=== PATIENT | female | born 1935 | race Caucasian/White ===

== ENCOUNTER 2022-06-25 13:30 | Outpatient (RCR) | payer MEDICARE, SELFPAY ==
[2022-06-18 09:06] VITALS: BP 114/62; PULSE 66; RESP 16; TEMP 36.3; BMI 19.0
--- NOTE | 2022-06-18 12:29 | PCM.WC.HP ---
History of Present Illness Date of Service: 06/18/22 History of Wound: This 86-year-old female presents to clinic with bilateral heel ulcerations. Patient notes that she has had these wounds for approximately 1 year. Patient notes that she had a hospitalization at the onset of the wounds. Patient uncertain of why she was hospitalized and when exactly the wound started. But patient does note that she sleeps on her back on a daily basis and will occasionally wake up with heel pain. She is recently started offloading her heels using a pillow and heel float technique. Patient denies any constitutional symptoms at this time does have a history of pacemaker application. Patient denies any constitutional symptoms chest pain calf pain shortness shortness of breath or any other complaints. Patient is ambulatory but unable to wear shoes due to pain. [facility] Home Medications acetaminophen 325 mg tablet 650 mg PO Q4H PRN Pain 06/18/22 [History Last Taken Unknown] albuterol 90 mcg/actuation aerosol inhaler 2 mcg inhalation 06/18/22 [History Last Taken Unknown] albuterol sulfate 90 mcg/actuation aerosol inhaler 2 puff inhalation Q6H PRN Wheezing 06/18/22 [History Last Taken Unknown] allopurinol 100 mg tablet 100 mg PO DAILY 06/18/22 [History Last Taken Unknown] amiodarone 200 mg tablet 200 mg PO DAILY 06/18/22 [History Last Taken Unknown] artificial tears ointment 1 applic EACH EYE QHS 06/18/22 [History Last Taken Unknown] aspirin 81 mg capsule 81 mg PO DAILY 06/18/22 [History Last Taken Unknown] calcium carbonate 500 mg calcium (1,250 mg) chewable tablet 500 mg PO DAILY heartburn 06/18/22 [History Last Taken Unknown] dextromethorphan HBr 30 mg/5 mL oral liquid 60 mg PO Q12H PRN PRN Cough 06/18/22 [History Last Taken Unknown] docusate sodium 100 mg capsule 100 mg PO BID 06/18/22 [History Last Taken Unknown] ferrous sulfate 325 mg (65 mg iron) tablet (FeroSul) 325 mg PO DAILY 06/18/22 [History Last Taken Unknown] gabapentin 100 mg tablet 100 mg PO BID 06/18/22 [History Last Taken Unknown] glipizide 2.5 mg tablet, extended release 24 hr 2.5 mg PO DAILY 06/18/22 [History Last Taken Unknown] lidocaine 4 % topical patch 1 patch topical DAILY 06/18/22 [History Last Taken Unknown] loratadine 10 mg tablet 10 mg PO DAILY 06/18/22 [History Last Taken Unknown] metoprolol tartrate 37.5 mg tablet 37.5 mg PO BID 06/18/22 [History Last Taken Unknown] montelukast 10 mg tablet 10 mg PO QHS 06/18/22 [History Last Taken Unknown] multivitamin 1 tab PO DAILY 06/18/22 [History Last Taken Unknown] nitroglycerin 0.4 mg sublingual tablet 0.4 mg sublingual Q5M PRN Chest Pain 06/18/22 [History Last Taken Unknown] pantoprazole 40 mg tablet,delayed release 40 mg PO DAILY 06/18/22 [History Last Taken Unknown] peg 400-propylene glycol 0.4 %-0.3 % eye gel drops (Systane Gel) 1 drp ophthalmic (eye) TID 06/18/22 [History Last Taken Unknown] potassium chloride 20 mEq tablet,extended release 20 meq PO QHS 06/18/22 [History Last Taken Unknown] potassium chloride 20 mEq tablet,extended release 40 meq PO DAILY 06/18/22 [History Last Taken Unknown] torsemide 20 mg tablet 60 mg PO TID 06/18/22 [History Last Taken Unknown] warfarin 2 mg tablet 2 mg PO DAILY 06/18/22 [History Last Taken Unknown] Allergy/AdvReac Type Severity Reaction Status Date / Time amoxicillin Allergy Other Verified 06/18/22 09:48 atorvastatin [From Lipitor] Allergy Other Verified 06/18/22 09:48 codeine Allergy Other Verified 06/18/22 09:48 cyclosporine [From Restasis] Allergy Other Verified 06/18/22 09:48 diltiazem [From Cardizem] Allergy Other Verified 06/18/22 09:48 ezetimibe [From Zetia] Allergy Other Verified 06/18/22 09:48 metolazone Allergy Other Verified 06/18/22 09:48 morphine Allergy Other Verified 06/18/22 09:48 Social History Smoking Status: Never smoker Vital Signs Vital Signs Vital Signs: 06/18/22 09:06 Temperature 97.3 F L Temperature Source Temporal Pulse Rate 66 Respiratory Rate 16 Blood Pressure 114/62 Blood Pressure Mean 79 Blood Pressure Source Monitor Blood Pressure Position Sitting Blood Pressure Location Left Arm Oxygen Delivery Method Room Air Weight Weight: 50.349 kg Body Mass Index (BMI) 19.0 Physical Exam Narrative Vascular: Dorsalis pedis posterior tibial pulses palpable 2 out of 4 to bilateral lower extremities they were triphasic on by on Doppler examination. Capillary fill time brisk to toes. There appear to be atrophic skin changes though. +1 pitting edema noted to the forefoot Avni malleoli region and lower leg. There are small petechiae distributed to through the dorsal foot and into the anterior leg. Neurologic: Light touch protective sensation intact to bilateral feet. Dermatologic: Full-thickness ulceration to plantar right heel and plantar left heel. Wounds demonstrate a fibronecrotic base and are tender to palpation. No deep probing undermining or signs of infection at this time. No evidence of fluctuance or crepitus noted to the periwound areas. No debridement performed. Musculoskeletal: No wound forming deformity noted. Muscular strength full. No pain with calf squeeze or palpation of popliteal fossa. Const alert and oriented x3 Debridement Note Debridement Note Post-Debridement Measurements and Additional Note: Post-Debridement Measurements/Treatment - Nurse 1 - General Ulcer Assessment Start: 06/18/22 09:05 Freq: Status: Active Protocol: CARLOS.LOWEXFlash Activity Type Activity Date Activity User E-sign Co-sign Detail Recorded Client Recorded Date Recorded By Document 06/18/22 09:06 [facility] [id number] 06/18/22 09:35 [facility] 06/18/22 09:06 - Today's Visit Information Type of service Initial Visit Arrival Mode Ambulatory, Walker Transfer Assistance Other Transfer Assist (Other) stand by Patient Identification Verified (Name & Yes ) Patient Requires Transmission-Based No Precautions Finger Stick Blood Sugar(mg/dl) (if 111 indicated): Blood Sugar Stated by Patient Height and Weight Height 5 ft 4 in Weight 50.349 kg Weight in Pounds 111.0 lbs Body Mass Index (BMI) 19.0 BMI Classification Normal BSA - Primo 1.52 Vital Signs Temperature (97.8 F-99.1 F) 97.3 F L Temperature Source Temporal Pulse Rate (60-100) 66 Pulse Location Monitor Respiratory Rate (12-18) 16 Respiratory rate source Observation Oxygen Delivery Method Room Air Blood Pressure (90/60-120/80) 114/62 Blood Pressure Mean (mm Hg) 79 Source Monitor Position Sitting Blood Pressure Location Left Arm History Since Last Visit- (Skip if this is Patient's initial visit) Left Footwear Other Footwear (Comment) Right Footwear Other Footwear (Comment) Other Footwear non skid socks Pain Scale: 0-10 Numeric Is Patient Pain Free? No BOTH HEELS -Description Sharp,Burning -Intensity 8 -Duration (hours) Acute -Pain Behavior Withdrawal from Touch,Facial Grimacing -Pain Aggravating Factors Standing, Sitting,Walking -Alleviating Factors/Interventions Turning/ Repositioning, Distraction, Will continue to monitor, Patient denies need for intervention, Emotional Support -Comments USES PRN TYLENOL AT ASSISTED LIVING Lower Extremity Assessment/ Foot Assessment/ Toe Nail Assessment Right -Posterior Tibial Palpable No -Posterior Tibial Doppler Monophasic -Dorsalis Pedis Palpable Yes -Dorsalis Pedis Doppler Monophasic -Extremity Color Pale -Hair Growth on Legs No -Hair Growth on Toes No -Temperature of Extremity Cool -Other Deformity No -Prior Foot Ulcer No -Charcot Joint No -Prior Amputation No -Thick Yes -Discolored Yes -Deformed No -Improper Length & Hygeine Yes Left -Posterior Tibial Palpable No -Posterior Tibial Doppler Monophasic -Dorsalis Pedis Palpable Yes -Dorsalis Pedis Doppler Monophasic -Extremity Color Pale -Hair Growth on Legs Yes -Hair Growth on Toes No -Temperature of Extremity Cool -Capillary Refill Less than 3 Seconds -Other Deformity No -Prior Foot Ulcer No -Charcot Joint No -Prior Amputation No -Thick Yes -Discolored Yes -Deformed No -Improper Length & Hygeine Yes Neuropathy Assessment Feet - Top Side and Bottom <Entered> (a) Communication Assessment Preferred language Nigerian Client Integration Manager Required No Able to Read Yes Able to Write Yes Communication Tools None Right Hearing Abillity Normal Left Hearing Abillity Normal Visual Assistive Devices Glasses Teaching Assessment Preferences Verbal,Written, Audio/Visual, Demonstration Barriers to Learning None Readiness To Learn Excellent Willingness to Engage in Self Management High Activies Readiness to Engage in Self Management High Activities Anxiety Level Calm Cooperation Cooperative Perception Coherent Interest in Health Problem Asks Questions Education Importance Acknowledges Need Does Patient Smoke tobacco or other No substances Smoking Status Never smoker Is Patient Diabetic Yes Functional Assessment Recent Decline in Ability to Perform Ambulation, Transferring Culture/Shinto/Resort Manager Cultural/Shinto Needs that may affect No Treatment Plan Teaching: Wound Center *Welcome to the Wound Center -Person Taught Patient -Teaching Method Discussion -Response to teaching Verbalize understanding Welcome to the Wound Care Center Nigerian (a) 1 - + WC - Nurse 1 - General Ulcer Measurement Start: 06/18/22 09:05 Freq: Status: Active Protocol: Activity Type Activity Date Activity User E-sign Co-sign Detail Recorded Client Recorded Date Recorded By Document 06/18/22 09:06 [facility] [id number] 06/18/22 09:35 [facility] 06/18/22 09:06 Wound Center Nurse 1 #2- L HEEL -Combined with other wound No -Current Size (cm) - Length 0.7 -Current Size (cm) - Width 0.7 -Current Size (cm) - Depth 0.2 -Total Square Cm 0.49 -Date of Last Picture (Recall this 06/18/22 field) -Photo Taken Yes -Epithelialization None Present -Tunneling No -Undermining/Tunneling No -Circular Undermining No -Exudate Amt Small -Exudate Type Serous -Wound Margin Distinct, Outline Attached -Granulation Amt None Present (0 %) -Slough/Fibrin Yes -Necrosis Amt Large (67-100%) -Necrotic Tissue Type Adherent Slough -Texture (Shannon-wound Skin Appearance) Assessed, Scarring -Moisture (Shannon-wound Skin Appearance) Assessed -Color (Shannon-wound Skin Appearance) Assessed, Erythema -Temperature (Shannon-wound Skin No Abnormality Appearance) (Pt Warm) -Tenderness on Palpation (Shannon-wound Yes Skin Appearance) -Ulcer Cleansing Soap and Water -Foul Odor after Cleansing No -Anesthetic Used 5% Lidocaine Gel #1- R HEEL CLUSTER -Combined with other wound No -Current Size (cm) - Length 1.1 -Current Size (cm) - Width 0.4 -Current Size (cm) - Depth 0.3 -Total Square Cm 0.44 -Date of Last Picture (Recall this 06/18/22 field) -Photo Taken Yes -Epithelialization None Present -Tunneling No -Undermining/Tunneling No -Circular Undermining No -Exudate Amt Small -Exudate Type Serous -Wound Margin Distinct, Outline Attached -Granulation Amt None Present (0 %) -Slough/Fibrin Yes -Necrosis Amt Large (67-100%) -Necrotic Tissue Type Adherent Slough -Texture (Shannon-wound Skin Appearance) Assessed, Scarring -Moisture (Shannon-wound Skin Appearance) Assessed -Color (Shannon-wound Skin Appearance) Assessed, Erythema -Temperature (Shannon-wound Skin No Abnormality Appearance) (Pt Warm) -Tenderness on Palpation (Shannon-wound Yes Skin Appearance) -Ulcer Cleansing Soap and Water -Foul Odor after Cleansing No -Anesthetic Used 5% Lidocaine Gel Lower Limb Edema Present Yes Right Calf (cm) 34.1 Right Ankle (cm) 20.5 Left Calf (cm) 34.5 Left Ankle (cm) 20 WC - Nurse 2 - General Ulcer CM Notes Start: 06/18/22 09:05 Freq: Status: Active Protocol: Activity Type Activity Date Activity User E-sign Co-sign Detail Recorded Client Recorded Date Recorded By Document 06/18/22 10:04 [id number] 06/18/22 10:15 CJ 06/18/22 10:04 Wound Center Nurse 2 #2- L HEEL -Correct Patient No -Correct Side, Site, Position No -Correct Procedure No -Procedure Performed No -Wound/Ulcer Outcome Not Healed #1- R HEEL CLUSTER -Correct Patient No -Correct Side, Site, Position No -Correct Procedure No -Procedure Performed No -Wound/Ulcer Outcome Not Healed Pain Scale: 0-10 Numeric Is Patient Pain Free? Yes - Nurse 3 - General Ulcer D/C NN Start: 06/18/22 09:05 Freq: Status: Active Protocol: Activity Type Activity Date Activity User E-sign Co-sign Detail Recorded Client Recorded Date Recorded By Document 06/18/22 10:36 DANY [id number] 06/18/22 10:37 DANY 06/18/22 10:36 Wound Care Nurse 3 Left -Multi-Layered Wrap Application Unna Boot - Bilateral ($) -Unna Boots (Bilat) ($) 2 Pain Scale: 0-10 Numeric Is Patient Pain Free? Yes WC - Visit Discharge Discharge Condition Stable Ambulatory Status Walker Transportation brethren care Assessment/Plan Assessment/Plan (1) Non-pressure chronic ulcer of other part of right foot with fat layer exposed: CODE(S): L97.512 - Non-pressure chronic ulcer of other part of right foot with fat layer exposed PLAN: Patient examined evaluated, all findings bita with patient in detail. Wounds appear stable at this time. Uncertain if they are secondary to pressure injury or possible underlying vasculitides. I have recommended offloading heels with Prevalon boots. Educated patient can purchase these off [employer] or a local medical equipment store. If patient is unable to receive these she will continue offloading her heels by floating them with a pillow as she sleeps on her back and can create excess pressure the posterior heel contributing to wound formation. Upon examination her vascular status appears to be intact, we have ordered arterial studies to rule out any macro or microvascular disease. I have ordered additional lab work to rule out any subtle underlying infection or inflammatory process such as autoimmune disease that may contribute to wound formation. Due to edema we have wrapped bilateral legs with Unna boot compressive dressings. I discussed with patient in detail that she should elevate her legs best doing this when laying supine position. Patient may remain ambulatory with an open back shoe to prevent irritation to the wound sites. Patient will follow up on a weekly basis as we will consider more work-up or advanced wound care products. (2) Non-pressure chronic ulcer of other part of left foot with fat layer exposed: CODE(S): L97.522 - Non-pressure chronic ulcer of other part of left foot with fat layer exposed
[2022-06-25 13:31] VITALS: BP 122/66; PULSE 98; RESP 20; TEMP 36.3; BMI 19.0
--- NOTE | 2022-06-25 15:39 | PN.PCM_ITS ---
History of Present Illness Date of Service: 06/25/22 Chief Complaint: Bilateral heel ulcers History of Wound: This 86-year-old female presents to clinic with bilateral heel ulcerations. Patient notes that she has had these wounds for approximately 1 year. Patient notes that she had a hospitalization at the onset of the wounds. Patient uncertain of why she was hospitalized and when exactly the wound started. But patient does note that she sleeps on her back on a daily basis and will occasionally wake up with heel pain. She is recently started offloading her heels using a pillow and heel float technique. Patient denies any constitutional symptoms at this time does have a history of pacemaker application. Patient denies any constitutional symptoms chest pain calf pain shortness shortness of breath or any other complaints. Patient is ambulatory but unable to wear shoes due to pain. Progress of Wound: Courtesy visit for Dr. Quiñonez. Right heel is healed today. Left heal has firm, tender callus with a black spot in the center. Edema is improved. She continues to have petechia on her toes. Objective Data Objective Data Vital Signs: Vital Signs Temp Pulse Resp BP O2 Del Method 97.3 F L 98 20 H 122/66 H Room Air 06/25/22 13:31 06/25/22 13:31 06/25/22 13:31 06/25/22 13:31 06/18/22 09:06 Oxygen Delivery Method Room Air Weight: 111 lb Body Mass Index (BMI) 19.0 Charges/Coding Visit Charges Office Visits / Consults: 63031 OV L3 Est Physical Exam Const alert and oriented x3 General Appearance: cooperative HEENT normocephalic Resp normal respiratory effort Effort and Inspection: able to speak in complete sentences Cardio regular rate GI non-tender Palpation: soft Extremity normal capillary refill Skin Skin Narrative: There are small petechiae distributed to through the dorsal foot and into the anterior leg.? Wound Narrative: Right heel is healed but remains tender to palpation. Left heal has a callus with a black spot in the center, that is firm, extremely painful to palpation. Neuro oriented x3 Sensorium / Orientation: alert Psych affect normal Debridement Note Debridement Note No debridement was completed: No debridement was completed today Post-Debridement Measurements and Additional Note: Post-Debridement Measurements/Treatment CARLOS - Nurse 1 - General Ulcer Assessment Start: 06/18/22 09:05 Freq: Status: Active Protocol: WC.LOWEXT Activity Type Activity Date Activity User E-sign Co-sign Detail Recorded Client Recorded Date Recorded By Document 06/18/22 09:06 [facility] [id number] 06/18/22 09:35 [facility] Document 06/25/22 13:31 DL [id number] 06/25/22 13:42 DL 06/18/22 06/25/22 09:06 13:31 WC - Today's Visit Information Type of service Initial Visit Follow-up Visit (Physician/REED OR WIND INSTRUMENT REPAIRER ) Arrival Mode Ambulatory, Wheelchair Walker Transfer Assistance Other Manual Transfer Assist (Other) stand by x1 Patient Identification Verified (Name & Yes Yes ) Patient Requires Transmission-Based No Precautions Safety Precautions Fall Prevention Finger Stick Blood Sugar(mg/dl) (if 111 pt unsure indicated): Blood Sugar Stated by Stated by Patient Patient Height and Weight Height 5 ft 4 in Weight 111 lb Weight in Pounds 111.0 lbs Body Mass Index (BMI) 19.0 19.0 BMI Classification Normal Normal BSA - Primo 1.52 Vital Signs Temperature (97.8 F-99.1 F) 97.3 F L 97.3 F L Temperature Source Temporal Temporal Pulse Rate (60-100) 66 98 Pulse Location Monitor Monitor Respiratory Rate (12-18) 16 20 H Respiratory rate source Observation Observation Oxygen Delivery Method Room Air Blood Pressure (90/60-120/80) 114/62 122/66 H Blood Pressure Mean (mm Hg) 79 84 Source Monitor Monitor Position Sitting Blood Pressure Location Left Arm History Since Last Visit- (Skip if this is Patient's initial visit) Have you changed medications since your No last visit? Any new allergies or adverse reactions No Had a fall/change in ADL's that may No increase risk of falls Signs or symptoms of abuse and/or No neglect since last visit Have you been in the hospital since your No last visit? Has dressing in place as prescribed Yes Has compression in place as prescribed Yes Has offloadiing in place as prescribed N/A Experienced any changes in pain level or Yes management Left Footwear Other Footwear (Comment) Right Footwear Other Footwear (Comment) Other Footwear non skid socks Pain Scale: 0-10 Numeric Is Patient Pain Free? No Yes BOTH HEELS -Description Sharp,Burning -Intensity 8 -Duration (hours) Acute -Pain Behavior Withdrawal from Touch,Facial Grimacing -Pain Aggravating Factors Standing, Sitting,Walking -Alleviating Factors/Interventions Turning/ Repositioning, Distraction, Will continue to monitor, Patient denies need for intervention, Emotional Support -Comments USES PRN TYLENOL AT ASSISTED LIVING Lower Extremity Assessment/ Foot Assessment/ Toe Nail Assessment Right -Posterior Tibial Palpable No -Posterior Tibial Doppler Monophasic -Dorsalis Pedis Palpable Yes -Dorsalis Pedis Doppler Monophasic -Extremity Color Pale -Hair Growth on Legs No -Hair Growth on Toes No -Temperature of Extremity Cool -Other Deformity No -Prior Foot Ulcer No -Charcot Joint No -Prior Amputation No -Thick Yes -Discolored Yes -Deformed No -Improper Length & Hygeine Yes Left -Posterior Tibial Palpable No -Posterior Tibial Doppler Monophasic -Dorsalis Pedis Palpable Yes -Dorsalis Pedis Doppler Monophasic -Extremity Color Pale -Hair Growth on Legs Yes -Hair Growth on Toes No -Temperature of Extremity Cool -Capillary Refill Less than 3 Seconds -Other Deformity No -Prior Foot Ulcer No -Charcot Joint No -Prior Amputation No -Thick Yes -Discolored Yes -Deformed No -Improper Length & Hygeine Yes Neuropathy Assessment Feet - Top Side and Bottom <Entered> (a) Communication Assessment Preferred language Irish Patient Relations Manager Required No Able to Read Yes Able to Write Yes Communication Tools None Right Hearing Abillity Normal Left Hearing Abillity Normal Visual Assistive Devices Glasses Teaching Assessment Preferences Verbal,Written, Audio/Visual, Demonstration Barriers to Learning None Readiness To Learn Excellent Willingness to Engage in Self Management High Activies Readiness to Engage in Self Management High Activities Anxiety Level Calm Cooperation Cooperative Perception Coherent Interest in Health Problem Asks Questions Education Importance Acknowledges Need Does Patient Smoke tobacco or other No substances Smoking Status Never smoker Is Patient Diabetic Yes Functional Assessment Recent Decline in Ability to Perform Ambulation, Transferring 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 Cultural/Sikhism Needs that may affect No Treatment Plan Teaching: Wound Center *Welcome to the Wound Center -Person Taught Patient -Teaching Method Discussion -Response to teaching Verbalize understanding Welcome to the Wound Care Center Irish (a) 1 - + WC - Nurse 1 - General Ulcer Measurement Start: 06/18/22 09:05 Freq: Status: Active Protocol: Activity Type Activity Date Activity User E-sign Co-sign Detail Recorded Client Recorded Date Recorded By Document 06/18/22 09:06 [facility] [id number] 06/18/22 09:35 [facility] Document 06/25/22 13:31 DL [id number] 06/25/22 13:42 DL 06/18/22 06/25/22 09:06 13:31 Wound Center Nurse 1 #1- R HEEL CLUSTER -Combined with other wound No -Current Size (cm) - Length 1.1 0.1 -Current Size (cm) - Width 0.4 0.1 -Current Size (cm) - Depth 0.3 0.1 -Total Square Cm 0.44 0.01 -Date of Last Picture (Recall this 06/18/22 field) -Photo Taken Yes No -Epithelialization None Present -Tunneling No -Undermining/Tunneling No -Circular Undermining No -Exudate Amt Small None Present -Exudate Type Serous -Wound Margin Distinct, Flat & Intact Outline Attached -Granulation Amt None Present (0 Large (67-100%) %) -Granulation Quality [place] -Slough/Fibrin Yes -Necrosis Amt Large (67-100%) None Present (0 %) -Necrotic Tissue Type Adherent Slough -Structure Exposed N/A -Texture (Shannon-wound Skin Appearance) Assessed, No Abnormality Scarring -Moisture (Shannon-wound Skin Appearance) Assessed No Abnormality -Color (Shannon-wound Skin Appearance) Assessed, Erythema -Temperature (Shannon-wound Skin No Abnormality No Abnormality Appearance) (Pt Warm) (Pt Warm) -Tenderness on Palpation (Shannon-wound Yes Yes Skin Appearance) -Ulcer Cleansing Soap and Water Soap and Water -Foul Odor after Cleansing No No -Anesthetic Used 5% Lidocaine 4% Lidocaine Gel Solution,5% Lidocaine Gel #2- L HEEL -Combined with other wound No -Current Size (cm) - Length 0.7 0.6 -Current Size (cm) - Width 0.7 0.8 -Current Size (cm) - Depth 0.2 0.2 -Total Square Cm 0.49 0.48 -Date of Last Picture (Recall this 06/18/22 field) -Photo Taken Yes No -Epithelialization None Present -Tunneling No -Undermining/Tunneling No -Circular Undermining No -Exudate Amt Small Small -Exudate Type Serous Serosanguineous -Wound Margin Distinct, Well Defined, Outline Not Attached Attached -Granulation Amt None Present (0 %) -Slough/Fibrin Yes -Necrosis Amt Large (67-100%) Large (67-100%) -Necrotic Tissue Type Adherent Slough Adherent Slough -Structure Exposed N/A -Texture (Shannon-wound Skin Appearance) Assessed, Scarring Scarring -Moisture (Shannon-wound Skin Appearance) Assessed No Abnormality -Color (Shannon-wound Skin Appearance) Assessed, No Abnormality Erythema -Temperature (Shannon-wound Skin No Abnormality No Abnormality Appearance) (Pt Warm) (Pt Warm) -Tenderness on Palpation (Shannon-wound Yes Yes Skin Appearance) -Ulcer Cleansing Soap and Water Soap and Water -Foul Odor after Cleansing No No -Anesthetic Used 5% Lidocaine 4% Lidocaine Gel Solution,5% Lidocaine Gel Lower Limb Edema Present Yes Right Calf (cm) 34.1 31 Right Ankle (cm) 20.5 19.5 Left Calf (cm) 34.5 31.5 Left Ankle (cm) 20 19 CARLOS - Nurse 2 - General Ulcer CM Notes Start: 06/18/22 09:05 Freq: Status: Active Protocol: Activity Type Activity Date Activity User E-sign Co-sign Detail Recorded Client Recorded Date Recorded By Document 06/18/22 10:04 [id number] 06/18/22 10:15 Document 06/25/22 14:12 [id number] 06/25/22 14:16 06/18/22 06/25/22 10:04 14:12 Wound Center Nurse 2 #1- R HEEL CLUSTER -Correct Patient No No -Correct Side, Site, Position No No -Correct Procedure No No -Procedure Performed No No -Post Debridement (cm) - Length 0 -Post Debridement (cm) - Width 0 -Post Debridement (cm) - Depth 0 -Total Square (Post) (cm) 0 -Area of Debridement (cm) - Length 0 -Area of Debridement (cm) - Width 0 -Total Square (Area) (cm) 0 -Wound/Ulcer Outcome Not Healed Healed- Epithelialized #2- L HEEL -Correct Patient No No -Correct Side, Site, Position No No -Correct Procedure No No -Procedure Performed No No -Wound/Ulcer Outcome Not Healed Not Healed -Debridement - Subq, 1st 20sq cm No Pain Scale: 0-10 Numeric Is Patient Pain Free? Yes Yes - Nurse 3 - General Ulcer D/C NN Start: 06/18/22 09:05 Freq: Status: Active Protocol: Activity Type Activity Date Activity User E-sign Co-sign Detail Recorded Client Recorded Date Recorded By Document 06/18/22 10:36 KR [id number] 06/18/22 10:37 KR Document 06/25/22 14:21 DL [id number] 06/25/22 14:55 DL 06/18/22 06/25/22 10:36 14:21 Wound Care Nurse 3 #2- L HEEL -Ulcer Cleansing Rinsed/ Irrigated with Saline -Foul Odor after Cleansing No Left -Multi-Layered Wrap Application Unna Boot - Unna Boot - Bilateral ($) Bilateral ($) -Unna Boots (Bilat) ($) 2 2 Treatment Response Procedure Tolerated Well Pain Scale: 0-10 Numeric Is Patient Pain Free? Yes Yes WC - Visit Discharge Discharge Condition Stable Stable Ambulatory Status Walker Wheelchair Transportation [facility] Facility Type [employer] And Pattern [employer]er Care Facility Orders Sent Yes Assessment/Plan Assessment/Plan (1) Non-pressure chronic ulcer of other part of right foot with fat layer exposed: CODE(S): L97.512 - Non-pressure chronic ulcer of other part of right foot with fat layer exposed PLAN: Courtesy visit for Dr. Quiñonez. Right heel is healed. Left heel is stable. Will continue with Unna boots bilaterally. She will continue to off load her heels bilaterally. She states she has been using a pillow to keep her heels off of her bed. Waiting for vascular studies. I discussed with patient in detail that she should elevate her legs best doing this when laying supine position. Patient may remain ambulatory with an open back shoe to prevent irritation to the wound sites. Labs reviewed with patient. Her chemistry panel has K+ 3.4, Chloride 96, BUN 39, creatinine 1.16. Sed rate 70, the remainder of the labs were unremarkable. Dr. Quiñonez can review all the labs in detail with her when he returns. Encouraged patient to increase potassium intake and eat green, leafy vegetables. Patient will follow up on a weekly basis. (2) Non-pressure chronic ulcer of other part of left foot with fat layer exposed: CODE(S): L97.522 - Non-pressure chronic ulcer of other part of left foot with fat layer exposed
== END 2022-06-26 23:59 | disposition home or self-care (01) ==
LOC: WC 13:30
PROVIDERS: PCP Internal Medicine; Referring Provider Internal Medicine; Visit Provider Podiatrist
DX: L97.512 Non-pressure chronic ulcer of other part of right foot with fat layer exposed (principal); L97.522 Non-pressure chronic ulcer of other part of left foot with fat layer exposed; R60.0 Localized edema; G62.9 Polyneuropathy, unspecified
CPT/HCPCS: 29580; 99203; 99213; G0463

== ENCOUNTER 2022-07-23 08:45 | Outpatient (RCR) | payer MEDICARE, SELFPAY ==
[2022-06-27 00:10] VITALS: BP 122/66; PULSE 98; RESP 20; TEMP 36.3; BMI 19.0
[2022-07-02 13:35] VITALS: BP 133/57; PULSE 61; RESP 18; TEMP 36.4; BMI 19.0
--- NOTE | 2022-07-02 14:04 | PCM.WC.PN ---
History of Present Illness Date of Service: 07/02/22 Chief Complaint: Bilateral heel ulcers History of Wound: This 86-year-old female presents to clinic with bilateral heel ulcerations. Patient notes that she has had these wounds for approximately 1 year. Patient notes that she had a hospitalization at the onset of the wounds. Patient uncertain of why she was hospitalized and when exactly the wound started. But patient does note that she sleeps on her back on a daily basis and will occasionally wake up with heel pain. She is recently started offloading her heels using a pillow and heel float technique. Patient denies any constitutional symptoms at this time does have a history of pacemaker application. Patient denies any constitutional symptoms chest pain calf pain shortness shortness of breath or any other complaints. Patient is ambulatory but unable to wear shoes due to pain. Progress of Wound: Courtesy visit for Dr. Quiñonez.? Right heel remains healed, but continues to be very painful to light palpation with sharp, electrical pains with walking.? Left heal no longer has thick callus, it has softened. It is also very painful to palpation. Edema is improved with the Unna boots. She continues to have petechia on her right toes. Objective Data Objective Data Vital Signs: Vital Signs Temp Pulse Resp BP 97.6 F L 61 18 133/57 H 07/02/22 13:35 07/02/22 13:35 07/02/22 13:35 07/02/22 13:35 Weight: 111 lb Body Mass Index (BMI) 19.0 Charges/Coding Procedures Integumentary 111xxx-113xx: [id number] Jolly subq tissue 20 sq cm/< Physical Exam Const alert and oriented x3 General Appearance: cooperative HEENT normocephalic Resp normal respiratory effort Effort and Inspection: able to speak in complete sentences Cardio regular rate GI non-tender Palpation: soft Extremity normal capillary refill Skin Skin Narrative: There are small petechiae distributed on right dorsal toes. Wound Narrative: Right heel remains healed but continues to be tender to palpation. Left heal has a callus has softened and able to be removed. It continues to be extremely painful to palpation. Neuro oriented x3 Sensorium / Orientation: alert Psych affect normal Debridement Note Debridement Note Wound debrided: posterior heel ulcer Laterality: Left Type of Debridement: Excisional debridement Anesthesia Used: 5% Lidocaine Gel Depth: Down to and including healthy tissue and in the subcutaneous layer Percentage of wound debrided: 100 Instrument Used: 3mm curette Tissue Removed: Devitalized tissue and slough Severity: Fat Layer Exposed Bleeding Controlled with: Pressure Patient tolerated procedure: Patient did not tolerate procedure well Debridement Free Text: Patient has a lot of discomfort with palpation and with light debridement. Post-Debridement Measurements and Additional Note: Post-Debridement Measurements/Treatment CARLOS - Nurse 1 - General Ulcer Assessment Start: 07/02/22 13:35 Freq: Status: Active Protocol: LENNOX Activity Type Activity Date Activity User E-sign Co-sign Detail Recorded Client Recorded Date Recorded By Document 07/02/22 13:35 TEN [id number] 07/02/22 13:39 TEN 07/02/22 13:35 WC - Today's Visit Information Type of service Follow-up Visit (Physician/RESTAURANT FLOOR MANAGER ) Arrival Mode Wheelchair Transfer Assistance Manual Transfer Assist (Other) x2 Patient Identification Verified (Name & Yes ) Patient Requires Transmission-Based No Precautions Height and Weight Body Mass Index (BMI) 19.0 BMI Classification Normal Vital Signs Temperature (97.8 F-99.1 F) 97.6 F L Temperature Source Temporal Pulse Rate (60-100) 61 Pulse Location Monitor Respiratory Rate (12-18) 18 Respiratory rate source Observation Blood Pressure (90/60-120/80) 133/57 H Blood Pressure Mean (mm Hg) 82 Source Monitor History Since Last Visit- (Skip if this is Patient's initial visit) Have you changed medications since your No last visit? Any new allergies or adverse reactions No Had a fall/change in ADL's that may No increase risk of falls Signs or symptoms of abuse and/or No neglect since last visit Have you been in the hospital since your No last visit? Has dressing in place as prescribed Yes Has compression in place as prescribed Yes Has offloadiing in place as prescribed Yes Experienced any changes in pain level or No management Left Footwear Slipper Right Footwear Slipper Pain Scale: 0-10 Numeric Is Patient Pain Free? Yes CARLOS Amaya Nurse 1 - General Ulcer Measurement Start: 07/02/22 13:35 Freq: Status: Active Protocol: Activity Type Activity Date Activity User E-sign Co-sign Detail Recorded Client Recorded Date Recorded By Document 07/02/22 13:35 TEN [id number] 07/02/22 13:39 AK 07/02/22 13:35 Wound Center Nurse 1 #2- L HEEL -Current Size (cm) - Length 0.4 -Current Size (cm) - Width 0.6 -Current Size (cm) - Depth 0.2 -Total Square Cm 0.24 -Photo Taken No -Exudate Amt Small -Exudate Type Serosanguineous -Wound Margin Distinct, Outline Attached -Granulation Amt None Present (0 %) -Necrosis Amt Medium (34-66%) -Necrotic Tissue Type Adherent Slough -Structure Exposed N/A -Texture (Shannon-wound Skin Appearance) Scarring -Moisture (Shannon-wound Skin Appearance) No Abnormality -Color (Shannon-wound Skin Appearance) No Abnormality -Temperature (Shannon-wound Skin No Abnormality Appearance) (Pt Warm) -Tenderness on Palpation (Shannon-wound No Skin Appearance) -Ulcer Cleansing Soap and Water -Foul Odor after Cleansing No -Anesthetic Used 5% Lidocaine Gel Right Calf (cm) 28.5 Right Ankle (cm) 20.5 Left Calf (cm) 29.7 Left Ankle (cm) 19.2 WC - Nurse 2 - General Ulcer CM Notes Start: 07/02/22 13:35 Freq: Status: Active Protocol: Activity Type Activity Date Activity User E-sign Co-sign Detail Recorded Client Recorded Date Recorded By Document 07/02/22 13:53 MW [id number] 07/02/22 13:57 MW 07/02/22 13:53 Wound Center Nurse 2 #2- L HEEL -Time 13:54 -Correct Patient Yes -Correct Side, Site, Position Yes -Correct Procedure Yes -Procedure Performed Yes -Type of Procedure Debridement -Clinical Debridement Subcutaneous -Tissue Removed Subcutaneous -Post Debridement (cm) - Length 0.7 -Post Debridement (cm) - Width 0.7 -Post Debridement (cm) - Depth 0.2 -Total Square (Post) (cm) 0.49 -Area of Debridement (cm) - Length 0.7 -Area of Debridement (cm) - Width 0.7 -Total Square (Area) (cm) 0.49 -Tunneling No -Undermining/Tunneling No -Circular Undermining No -Wound/Ulcer Outcome Not Healed -Ulcer Cleansing Rinsed/ Irrigated with Saline -Foul Odor after Cleansing No -Bioengineered Tissue No -Bleeding Controlled with Pressure -Treatment Response Procedure Tolerated Well -Offloading No -Debridement - Subq, 1st 20sq cm Yes Pain Scale: 0-10 Numeric Is Patient Pain Free? Yes Assessment/Plan Assessment/Plan (1) Non-pressure chronic ulcer of other part of right foot with fat layer exposed: CODE(S): L97.512 - Non-pressure chronic ulcer of other part of right foot with fat layer exposed PLAN: Courtesy visit for Dr. Quiñonez. Right heel remains healed. Left heel has improved. Will continue with Unna boots bilaterally. She will continue to off load her heels bilaterally. She states she has been using a pillow to keep her heels off of her bed. She is complaining of sharp, hot, shooting pains in bilateral heels when walking. Waiting for vascular studies. I discussed with patient in detail that she should elevate her legs best doing this when laying supine position. Patient may remain ambulatory with an open back shoe to prevent irritation to the wound sites. Labs reviewed with patient. Her chemistry panel has K+ 3.4, Chloride 96, BUN 39, creatinine 1.16. Sed rate 70, the remainder of the labs were unremarkable. Dr. Quiñonez can review all the labs in detail with her when he returns. Encouraged patient to increase potassium intake and eat green, leafy vegetables. Patient will follow up on a weekly basis. (2) Non-pressure chronic ulcer of other part of left foot with fat layer exposed: CODE(S): L97.522 - Non-pressure chronic ulcer of other part of left foot with fat layer exposed
[2022-07-09 08:43] VITALS: BP 90/60; PULSE 66; TEMP 36.2; BMI 19.0
--- NOTE | 2022-07-09 10:08 | PN.PCM_ITS ---
History of Present Illness Date of Service: 07/09/22 Chief Complaint: Bilateral heel ulcers History of Wound: This 86-year-old female presents to clinic with bilateral heel ulcerations. Patient notes that she has had these wounds for approximately 1 year. Patient notes that she had a hospitalization at the onset of the wounds. Patient uncertain of why she was hospitalized and when exactly the wound started. But patient does note that she sleeps on her back on a daily basis and will occasionally wake up with heel pain. She is recently started offloading her heels using a pillow and heel float technique. Patient denies any constitutional symptoms at this time does have a history of pacemaker application. Patient denies any constitutional symptoms chest pain calf pain shortness shortness of breath or any other complaints. Patient is ambulatory but unable to wear shoes due to pain. Progress of Wound: Courtesy visit for Dr. Quiñonez.? Right heel remains healed, but continues to be very painful to light palpation with sharp, electrical pains with walking.? Left heal no longer has thick callus, it has softened. It is also very painful to palpation. Edema is improved with the Unna boots. She continues to have petechia on her right toes. Objective Data Objective Data Vital Signs: Vital Signs Temp Pulse Resp BP 97.2 F L 66 18 90/60 07/09/22 08:43 07/09/22 08:43 07/02/22 13:35 07/09/22 08:43 Weight: 50.349 kg Body Mass Index (BMI) 19.0 Physical Exam Narrative Vascular: Dorsalis pedis posterior tibial pulses palpable 2 out of 4 to bilateral lower extremities they were triphasic on by on Doppler examination. Capillary fill time brisk to toes. There appear to be atrophic skin changes though. +1 pitting edema noted to the forefoot Avni malleoli region and lower leg. There are small petechiae distributed to through the dorsal foot and into the anterior leg. Neurologic: Light touch protective sensation intact to bilateral feet. Dermatologic: Full-thickness ulceration to plantar right heel and plantar left heel. Wounds demonstrate a fibronecrotic base and are tender to palpation. No deep probing undermining or signs of infection at this time. No evidence of fluctuance or crepitus noted to the periwound areas. No debridement performed. Musculoskeletal: No wound forming deformity noted. Muscular strength full. No pain with calf squeeze or palpation of popliteal fossa. Const alert and oriented x3 Debridement Note Debridement Note Post-Debridement Measurements and Additional Note: Post-Debridement Measurements/Treatment CARLOS - Nurse 1 - General Ulcer Assessment Start: 07/02/22 13:35 Freq: Status: Active Protocol: LOWEXT Activity Type Activity Date Activity User E-sign Co-sign Detail Recorded Client Recorded Date Recorded By Document 07/02/22 13:35 AK [id number] 07/02/22 13:39 AK Document 07/09/22 08:43 ML [id number] 07/09/22 08:52 ML 07/02/22 07/09/22 13:35 08:43 WC - Today's Visit Information Type of service Follow-up Visit Follow-up Visit (Physician/CURRENCY MACHINE OPERATOR (Physician/CURRENCY MACHINE OPERATOR ) ) Arrival Mode Wheelchair Wheelchair Transfer Assistance Manual None Transfer Assist (Other) x2 Patient Identification Verified (Name & Yes Yes ) Patient Requires Transmission-Based No No Precautions Safety Precautions NA Height and Weight Body Mass Index (BMI) 19.0 19.0 BMI Classification Normal Normal Vital Signs Temperature (97.8 F-99.1 F) 97.6 F L 97.2 F L Temperature Source Temporal Temporal Pulse Rate (60-100) 61 66 Pulse Location Monitor Monitor Respiratory Rate (12-18) 18 Respiratory rate source Observation Blood Pressure (90/60-120/80) 133/57 H 90/60 Blood Pressure Mean (mm Hg) 82 70 Source Monitor Monitor Position Sitting Blood Pressure Location Left Arm History Since Last Visit- (Skip if this is Patient's initial visit) Have you changed medications since your No No last visit? Any new allergies or adverse reactions No No Had a fall/change in ADL's that may No No increase risk of falls Signs or symptoms of abuse and/or No No neglect since last visit Have you been in the hospital since your No No last visit? Has dressing in place as prescribed Yes Yes Has compression in place as prescribed Yes N/A Has offloadiing in place as prescribed Yes Experienced any changes in pain level or No No management Left Footwear Slipper Slipper Right Footwear Slipper Slipper Pain Scale: 0-10 Numeric Is Patient Pain Free? Yes Yes CARLOS - Nurse 1 - General Ulcer Measurement Start: 07/02/22 13:35 Freq: Status: Active Protocol: Activity Type Activity Date Activity User E-sign Co-sign Detail Recorded Client Recorded Date Recorded By Document 07/02/22 13:35 AK [id number] 07/02/22 13:39 AK Document 07/09/22 08:43 ML [id number] 07/09/22 08:52 ML 07/02/22 07/09/22 13:35 08:43 Wound Center Nurse 1 #2- L HEEL -Current Size (cm) - Length 0.4 0.8 -Current Size (cm) - Width 0.6 0.7 -Current Size (cm) - Depth 0.2 0.3 -Total Square Cm 0.24 0.56 -Photo Taken No -Exudate Amt Small Medium -Exudate Type Serosanguineous Serous -Wound Margin Distinct, Distinct, Outline Outline Attached Attached -Granulation Amt None Present (0 Small (1-33%) %) -Slough/Fibrin Yes -Necrosis Amt Medium (34-66%) None Present (0 %) -Necrotic Tissue Type Adherent Slough Adherent Slough -Structure Exposed N/A -Texture (Shannon-wound Skin Appearance) Scarring Assessed -Moisture (Shannon-wound Skin Appearance) No Abnormality Maceration -Color (Shannon-wound Skin Appearance) No Abnormality Assessed -Temperature (Shannon-wound Skin No Abnormality No Abnormality Appearance) (Pt Warm) (Pt Warm) -Tenderness on Palpation (Shannon-wound No Yes Skin Appearance) -Ulcer Cleansing Soap and Water Soap and Water -Foul Odor after Cleansing No No -Anesthetic Used 5% Lidocaine 5% Lidocaine Gel Gel #1- R HEEL CLUSTER -Current Size (cm) - Length 0.7 -Current Size (cm) - Width 1 -Current Size (cm) - Depth 0.1 -Total Square Cm 0.7 -Exudate Amt Small -Exudate Type Serous -Granulation Amt None Present (0 %) -Slough/Fibrin Yes -Necrosis Amt None Present (0 %) -Necrotic Tissue Type Adherent Slough -Texture (Shannon-wound Skin Appearance) Assessed -Moisture (Shannon-wound Skin Appearance) Maceration -Color (Shannon-wound Skin Appearance) Assessed -Temperature (Shannon-wound Skin No Abnormality Appearance) (Pt Warm) -Tenderness on Palpation (Shannon-wound Yes Skin Appearance) -Ulcer Cleansing Soap and Water -Foul Odor after Cleansing No -Anesthetic Used 5% Lidocaine Gel Right Calf (cm) 28.5 29 Right Ankle (cm) 20.5 17.5 Left Calf (cm) 29.7 27 Left Ankle (cm) 19.2 17 WC - Nurse 2 - General Ulcer CM Notes Start: 07/02/22 13:35 Freq: Status: Active Protocol: Activity Type Activity Date Activity User E-sign Co-sign Detail Recorded Client Recorded Date Recorded By Document 07/02/22 13:53 MW [id number] 07/02/22 13:57 MW Document 07/09/22 09:05 [id number] 07/09/22 09:09 JF 07/02/22 07/09/22 13:53 09:05 Wound Center Nurse 2 #2- L HEEL -Time 13:54 09:05 -Correct Patient Yes Yes -Correct Side, Site, Position Yes Yes -Correct Procedure Yes Yes -Procedure Performed Yes Yes -Type of Procedure Debridement Debridement -Clinical Debridement Subcutaneous Subcutaneous -Tissue Removed Subcutaneous Subcutaneous -Post Debridement (cm) - Length 0.7 0.6 -Post Debridement (cm) - Width 0.7 0.6 -Post Debridement (cm) - Depth 0.2 0.2 -Total Square (Post) (cm) 0.49 0.36 -Area of Debridement (cm) - Length 0.7 0.6 -Area of Debridement (cm) - Width 0.7 0.6 -Total Square (Area) (cm) 0.49 0.36 -Tunneling No No -Undermining/Tunneling No No -Circular Undermining No No -Wound/Ulcer Outcome Not Healed Not Healed -Ulcer Cleansing Rinsed/ Rinsed/ Irrigated with Irrigated with Saline Saline -Foul Odor after Cleansing No No -Bioengineered Tissue No No -Bleeding Controlled with Pressure Pressure -Treatment Response Procedure Procedure Tolerated Well Tolerated Well -Offloading No No -Debridement - Subq, 1st 20sq cm Yes Yes #1- R HEEL CLUSTER -Time 09:06 -Correct Patient Yes -Correct Side, Site, Position Yes -Correct Procedure Yes -Procedure Performed Yes -Type of Procedure Debridement -Clinical Debridement Subcutaneous -Tissue Removed Subcutaneous -Post Debridement (cm) - Length 0.3 -Post Debridement (cm) - Width 0.4 -Post Debridement (cm) - Depth 0.1 -Total Square (Post) (cm) 0.12 -Area of Debridement (cm) - Length 0.3 -Area of Debridement (cm) - Width 0.4 -Total Square (Area) (cm) 0.12 -Tunneling No -Undermining/Tunneling No -Circular Undermining No -Wound/Ulcer Outcome Not Healed -Ulcer Cleansing Rinsed/ Irrigated with Saline -Foul Odor after Cleansing No -Bioengineered Tissue No -Bleeding Controlled with Pressure -Treatment Response Procedure Tolerated Well -Offloading No -Debridement - Subq, 1st 20sq cm No Pain Scale: 0-10 Numeric Is Patient Pain Free? Yes Yes WC - Nurse 3 - General Ulcer D/C NN Start: 07/02/22 13:35 Freq: Status: Active Protocol: Activity Type Activity Date Activity User E-sign Co-sign Detail Recorded Client Recorded Date Recorded By Document 07/02/22 14:02 [id number] 07/02/22 14:04 Document 07/09/22 09:26 [facility] [id number] 07/09/22 09:27 [facility] 07/02/22 07/09/22 14:02 09:26 Wound Care Nurse 3 #2- L HEEL -Ulcer Cleansing Not Cleansed Rinsed/ Irrigated with Saline -Foul Odor after Cleansing No -Primary Dressing Applied Promogran [place] Matter -Other Dressing UNNA BOOT -Primary Dressing Covered/Secured with Dry Gauze & Roll Gauze, Secured with Tape -Other Covering heel hat -Promogran [place] Matter 1 #1- R HEEL CLUSTER -Ulcer Cleansing Rinsed/ Irrigated with Saline -Foul Odor after Cleansing No -Primary Dressing Applied Promogran [place] Matter -Primary Dressing Covered/Secured with Dry Gauze & Roll Gauze, Secured with Tape -Other Covering heel hat -Promogran [place] Matter 0 BILATERAL LE -Lotion applied to leg before No compression wrap -Multi-Layered Wrap Application Unna Boot - Bilateral ($) -Unna Boots (Bilat) ($) 2 -Tubular Bandage Single Layer -Size of Tubigrip Used Size D -Size D ($) 2 -Other UNNA BOOT APPLIED PER CHRISTOS DOWNEY LPN Treatment Response Procedure Procedure Tolerated Well Tolerated Well Pain Scale: 0-10 Numeric Is Patient Pain Free? Yes Yes Teaching: Wound Center Compression Wraps & Stockings -Person Taught Patient -Teaching Method Discussion, Demonstration -Response to teaching Verbalize understanding WC - Visit Discharge Discharge Condition Stable Stable Ambulatory Status Wheelchair Wheelchair Transportation Private Auto assisted living transport Accompanied by ASIA SAVAGE Medication Reconcilliation completed & No provided to patient/care provider Clinical Summary of Care Provided Yes Other assisted living Assessment/Plan Assessment/Plan (1) Non-pressure chronic ulcer of other part of right foot with fat layer exposed: CODE(S): L97.512 - Non-pressure chronic ulcer of other part of right foot with fat layer exposed PLAN: Patient examined evaluated, all findings bita with patient in detail. Patient had hit right heel wound healed temporarily. This has recurred. Patient offloading her heels and night via heel float with a pillow. She notes that sometimes her foot slips off and she will wake up with pain to her heel. Patient sleeps in the supine position. I discussed with patient in detail that this is the likely etiology of her wound as a pressure injury to bilateral heels. We are awaiting arterial studies for further evaluation of her micro and macrovascular network. Patient received 1 Prevalon offloading boot. She is awaiting an additional. I educated her to start this on the foot that hurts her the worst. She will initiate use of the second Prevalon boot once it is received. Previous lab work demonstrated elevated blood glucose at approximately greater than 190. Elevated ESR. All of their findings were normal and negative for any autoimmune etiology. Clinically I have little concern for any infection at this time. Wound was dressed with [place] DSD and Tubigrip for compression. Patient will follow up in 1 week. (2) Non-pressure chronic ulcer of other part of left foot with fat layer exposed: CODE(S): L97.522 - Non-pressure chronic ulcer of other part of left foot with fat layer exposed
[2022-07-16 08:35] VITALS: BP 127/66; PULSE 65; RESP 16; TEMP 35.7; BMI 19.0
--- NOTE | 2022-07-16 09:19 | PN.PCM_ITS ---
History of Present Illness Date of Service: 07/16/22 Chief Complaint: Bilateral heel ulcers History of Wound: This 86-year-old female presents to clinic with bilateral heel ulcerations. Patient notes that she has had these wounds for approximately 1 year. Patient notes that she had a hospitalization at the onset of the wounds. Patient uncertain of why she was hospitalized and when exactly the wound started. But patient does note that she sleeps on her back on a daily basis and will occasionally wake up with heel pain. She is recently started offloading her heels using a pillow and heel float technique. Patient denies any constitutional symptoms at this time does have a history of pacemaker application. Patient denies any constitutional symptoms chest pain calf pain shortness shortness of breath or any other complaints. Patient is ambulatory but unable to wear shoes due to pain. Progress of Wound: Courtesy visit for Dr. Quiñonez.? Right heel remains healed, but continues to be very painful to light palpation with sharp, electrical pains with walking.? Left heal no longer has thick callus, it has softened. It is also very painful to palpation. Edema is improved with the Unna boots. She continues to have petechia on her right toes. Objective Data Objective Data Vital Signs: Vital Signs Temp Pulse Resp BP O2 Del Method 96.2 F L 65 16 127/66 H Room Air 07/16/22 08:35 07/16/22 08:35 07/16/22 08:35 07/16/22 08:35 07/16/22 08:35 Oxygen Delivery Method Room Air Weight: 50.349 kg Body Mass Index (BMI) 19.0 Physical Exam Narrative Vascular: Dorsalis pedis posterior tibial pulses palpable 2 out of 4 to bilateral lower extremities they were triphasic on by on Doppler examination. Capillary fill time brisk to toes. There appear to be atrophic skin changes though. +1 pitting edema noted to the forefoot Avni malleoli region and lower leg. There are small petechiae distributed to through the dorsal foot and into the anterior leg. Neurologic: Light touch protective sensation intact to bilateral feet. Dermatologic: Full-thickness ulceration to plantar right heel and plantar left heel. Wounds demonstrate a fibronecrotic base and are tender to palpation. No deep probing undermining or signs of infection at this time. No evidence of fluctuance or crepitus noted to the periwound areas. No debridement performed. Musculoskeletal: No wound forming deformity noted. Muscular strength full. No pain with calf squeeze or palpation of popliteal fossa. Const alert and oriented x3 Debridement Note Debridement Note Post-Debridement Measurements and Additional Note: Post-Debridement Measurements/Treatment WC - Nurse 1 - General Ulcer Assessment Start: 07/02/22 13:35 Freq: Status: Active Protocol: WC.LOWEXT Activity Type Activity Date Activity User E-sign Co-sign Detail Recorded Client Recorded Date Recorded By Document 07/02/22 13:35 AK [id number] 07/02/22 13:39 AK Document 07/09/22 08:43 ML [id number] 07/09/22 08:52 ML Document 07/16/22 08:35 BMF [id number] 07/16/22 08:44 BMF 07/02/22 07/09/22 07/16/22 13:35 08:43 08:35 WC - Today's Visit Information Type of service Follow-up Visit Follow-up Visit Follow-up Visit (Physician/COAL BRIQUETTE MACHINE OPERATOR (Physician/COAL BRIQUETTE MACHINE OPERATOR (Physician/COAL BRIQUETTE MACHINE OPERATOR ) ) ) Arrival Mode Wheelchair Wheelchair Wheelchair Transfer Assistance Manual None None Transfer Assist (Other) x2 Patient Identification Verified (Name & Yes Yes Yes ) Patient Requires Transmission-Based No No No Precautions Safety Precautions NA Height and Weight Body Mass Index (BMI) 19.0 19.0 19.0 BMI Classification Normal Normal Normal Vital Signs Temperature (97.8 F-99.1 F) 97.6 F L 97.2 F L 96.2 F L Temperature Source Temporal Temporal Temporal Pulse Rate (60-100) 61 66 65 Pulse Location Monitor Monitor Monitor Respiratory Rate (12-18) 18 16 Respiratory rate source Observation Observation Oxygen Delivery Method Room Air Blood Pressure (90/60-120/80) 133/57 H 90/60 127/66 H Blood Pressure Mean (mm Hg) 82 70 86 Source Monitor Monitor Monitor Position Sitting Sitting Blood Pressure Location Left Arm History Since Last Visit- (Skip if this is Patient's initial visit) Have you changed medications since your No No No last visit? Any new allergies or adverse reactions No No No Had a fall/change in ADL's that may No No No increase risk of falls Signs or symptoms of abuse and/or No No No neglect since last visit Have you been in the hospital since your No No No last visit? Has dressing in place as prescribed Yes Yes Yes Has compression in place as prescribed Yes N/A Yes Has offloadiing in place as prescribed Yes Experienced any changes in pain level or No No No management Left Footwear Slipper Slipper Slipper Right Footwear Slipper Slipper Slipper Pain Scale: 0-10 Numeric Is Patient Pain Free? Yes Yes Yes WC - Nurse 1 - General Ulcer Measurement Start: 07/02/22 13:35 Freq: Status: Active Protocol: Activity Type Activity Date Activity User E-sign Co-sign Detail Recorded Client Recorded Date Recorded By Document 07/02/22 13:35 AK [id number] 07/02/22 13:39 AK Document 07/09/22 08:43 ML [id number] 07/09/22 08:52 ML Document 07/16/22 08:35 BMF [id number] 07/16/22 08:44 BMF 07/02/22 07/09/22 07/16/22 13:35 08:43 08:35 Wound Center Nurse 1 #2- L HEEL -Current Size (cm) - Length 0.4 0.8 0.5 -Current Size (cm) - Width 0.6 0.7 0.6 -Current Size (cm) - Depth 0.2 0.3 0.2 -Total Square Cm 0.24 0.56 0.30 -Photo Taken No No -Epithelialization None Present -Tunneling No -Undermining/Tunneling No -Circular Undermining No -Exudate Amt Small Medium Small -Exudate Type Serosanguineous Serous Serous -Wound Margin Distinct, Distinct, Distinct, Outline Outline Outline Attached Attached Attached -Granulation Amt None Present (0 Small (1-33%) None Present (0 %) %) -Slough/Fibrin Yes Yes -Necrosis Amt Medium (34-66%) None Present (0 Large (67-100%) %) -Necrotic Tissue Type Adherent Slough Adherent Slough Adherent Slough -Structure Exposed N/A -Texture (Shannon-wound Skin Appearance) Scarring Assessed Assessed, Scarring -Moisture (Shannon-wound Skin Appearance) No Abnormality Maceration Assessed -Color (Shannon-wound Skin Appearance) No Abnormality Assessed Assessed, Erythema -Temperature (Shannon-wound Skin No Abnormality No Abnormality No Abnormality Appearance) (Pt Warm) (Pt Warm) (Pt Warm) -Tenderness on Palpation (Shannon-wound No Yes Yes Skin Appearance) -Ulcer Cleansing Soap and Water Soap and Water Rinsed/ Irrigated with Saline -Foul Odor after Cleansing No No No -Anesthetic Used 5% Lidocaine 5% Lidocaine 5% Lidocaine Gel Gel Gel #1- R HEEL CLUSTER -Combined with other wound No -Current Size (cm) - Length 0.7 0.3 -Current Size (cm) - Width 1 0.6 -Current Size (cm) - Depth 0.1 0.1 -Total Square Cm 0.7 0.18 -Photo Taken No -Epithelialization None Present -Tunneling No -Undermining/Tunneling No -Circular Undermining No -Exudate Amt Small Small -Exudate Type Serous Serous -Wound Margin Distinct, Outline Attached -Granulation Amt None Present (0 None Present (0 %) %) -Slough/Fibrin Yes Yes -Necrosis Amt None Present (0 Large (67-100%) %) -Necrotic Tissue Type Adherent Slough Adherent Slough -Texture (Shannon-wound Skin Appearance) Assessed Assessed, Scarring -Moisture (Shannon-wound Skin Appearance) Maceration Assessed -Color (Shannon-wound Skin Appearance) Assessed Assessed, Erythema -Temperature (Shannon-wound Skin No Abnormality No Abnormality Appearance) (Pt Warm) (Pt Warm) -Tenderness on Palpation (Shannon-wound Yes Yes Skin Appearance) -Ulcer Cleansing Soap and Water Rinsed/ Irrigated with Saline -Foul Odor after Cleansing No No -Anesthetic Used 5% Lidocaine 5% Lidocaine Gel Gel Lower Limb Edema Present Yes Right Calf (cm) 28.5 29 28 Right Ankle (cm) 20.5 17.5 22 Left Calf (cm) 29.7 27 28.6 Left Ankle (cm) 19.2 17 24 WC - Nurse 2 - General Ulcer CM Notes Start: 07/02/22 13:35 Freq: Status: Active Protocol: Activity Type Activity Date Activity User E-sign Co-sign Detail Recorded Client Recorded Date Recorded By Document 07/02/22 13:53 MW [id number] 07/02/22 13:57 MW Document 07/09/22 09:05 [id number] 07/09/22 09:09 07/02/22 07/09/22 13:53 09:05 Wound Center Nurse 2 #2- L HEEL -Time 13:54 09:05 -Correct Patient Yes Yes -Correct Side, Site, Position Yes Yes -Correct Procedure Yes Yes -Procedure Performed Yes Yes -Type of Procedure Debridement Debridement -Clinical Debridement Subcutaneous Subcutaneous -Tissue Removed Subcutaneous Subcutaneous -Post Debridement (cm) - Length 0.7 0.6 -Post Debridement (cm) - Width 0.7 0.6 -Post Debridement (cm) - Depth 0.2 0.2 -Total Square (Post) (cm) 0.49 0.36 -Area of Debridement (cm) - Length 0.7 0.6 -Area of Debridement (cm) - Width 0.7 0.6 -Total Square (Area) (cm) 0.49 0.36 -Tunneling No No -Undermining/Tunneling No No -Circular Undermining No No -Wound/Ulcer Outcome Not Healed Not Healed -Ulcer Cleansing Rinsed/ Rinsed/ Irrigated with Irrigated with Saline Saline -Foul Odor after Cleansing No No -Bioengineered Tissue No No -Bleeding Controlled with Pressure Pressure -Treatment Response Procedure Procedure Tolerated Well Tolerated Well -Offloading No No -Debridement - Subq, 1st 20sq cm Yes Yes #1- R HEEL CLUSTER -Time 09:06 -Correct Patient Yes -Correct Side, Site, Position Yes -Correct Procedure Yes -Procedure Performed Yes -Type of Procedure Debridement -Clinical Debridement Subcutaneous -Tissue Removed Subcutaneous -Post Debridement (cm) - Length 0.3 -Post Debridement (cm) - Width 0.4 -Post Debridement (cm) - Depth 0.1 -Total Square (Post) (cm) 0.12 -Area of Debridement (cm) - Length 0.3 -Area of Debridement (cm) - Width 0.4 -Total Square (Area) (cm) 0.12 -Tunneling No -Undermining/Tunneling No -Circular Undermining No -Wound/Ulcer Outcome Not Healed -Ulcer Cleansing Rinsed/ Irrigated with Saline -Foul Odor after Cleansing No -Bioengineered Tissue No -Bleeding Controlled with Pressure -Treatment Response Procedure Tolerated Well -Offloading No -Debridement - Subq, 1st 20sq cm No Pain Scale: 0-10 Numeric Is Patient Pain Free? Yes Yes WC - Nurse 3 - General Ulcer D/C NN Start: 07/02/22 13:35 Freq: Status: Active Protocol: Activity Type Activity Date Activity User E-sign Co-sign Detail Recorded Client Recorded Date Recorded By Document 07/02/22 14:02 [id number] 07/02/22 14:04 Document 07/09/22 09:26 [facility] [id number] 07/09/22 09:27 [facility] 07/02/22 07/09/22 14:02 09:26 Wound Care Nurse 3 #2- L HEEL -Ulcer Cleansing Not Cleansed Rinsed/ Irrigated with Saline -Foul Odor after Cleansing No -Primary Dressing Applied Promogran [place] Matter -Other Dressing UNNA BOOT -Primary Dressing Covered/Secured with Dry Gauze & Roll Gauze, Secured with Tape -Other Covering heel hat -Promogran [place] Matter 1 #1- R HEEL CLUSTER -Ulcer Cleansing Rinsed/ Irrigated with Saline -Foul Odor after Cleansing No -Primary Dressing Applied Promogran [place] Matter -Primary Dressing Covered/Secured with Dry Gauze & Roll Gauze, Secured with Tape -Other Covering heel hat -Promogran [place] Matter 0 BILATERAL LE -Lotion applied to leg before No compression wrap -Multi-Layered Wrap Application Unna Boot - Bilateral ($) -Unna Boots (Bilat) ($) 2 -Tubular Bandage Single Layer -Size of Tubigrip Used Size D -Size D ($) 2 -Other UNNA BOOT APPLIED PER CHRISTOS DOWNEY LPN Treatment Response Procedure Procedure Tolerated Well Tolerated Well Pain Scale: 0-10 Numeric Is Patient Pain Free? Yes Yes Teaching: Wound Center Compression Wraps & Stockings -Person Taught Patient -Teaching Method Discussion, Demonstration -Response to teaching Verbalize understanding WC - Visit Discharge Discharge Condition Stable Stable Ambulatory Status Wheelchair Wheelchair Transportation Private Auto assisted living transport Accompanied by ASIA SAVAGE Medication Reconcilliation completed & No provided to patient/care provider Clinical Summary of Care Provided Yes Other assisted living Assessment/Plan Assessment/Plan (1) Non-pressure chronic ulcer of other part of right foot with fat layer exposed: CODE(S): L97.512 - Non-pressure chronic ulcer of other part of right foot with fat layer exposed PLAN: Patient examined evaluated, all findings bita with patient in detail. Patient had hit right heel wound healed temporarily. This has recurred. Patient offloading her heels and night via heel float with a pillow. She notes that sometimes her foot slips off and she will wake up with pain to her heel. Patient sleeps in the supine position. I discussed with patient in detail that this is the likely etiology of her wound as a pressure injury to bilateral heels. We are awaiting arterial studies for further evaluation of her micro and macrovascular network. Patient received 1 Prevalon offloading boot. She is awaiting an additional. I educated her to start this on the foot that hurts her the worst. She will initiate use of the second Prevalon boot once it is received. Previous lab work demonstrated elevated blood glucose at approximately greater than 190. Elevated ESR. All of their findings were normal and negative for any autoimmune etiology. Clinically I have little concern for any infection at this time. Wound was dressed with hydrogel DSD and Tubigrip for compression. Patient will follow up in 1 week. (2) Non-pressure chronic ulcer of other part of left foot with fat layer exposed: CODE(S): L97.522 - Non-pressure chronic ulcer of other part of left foot with fat layer exposed
[2022-07-23 09:08] VITALS: BP 136/79; PULSE 94; RESP 16; TEMP 36.2; BMI 19.0
--- NOTE | 2022-07-23 10:07 | PCM.WC.PN ---
History of Present Illness Date of Service: 07/23/22 Chief Complaint: Bilateral heel ulcers History of Wound: This 86-year-old female presents to clinic with bilateral heel ulcerations. Patient notes that she has had these wounds for approximately 1 year. Patient notes that she had a hospitalization at the onset of the wounds. Patient uncertain of why she was hospitalized and when exactly the wound started. But patient does note that she sleeps on her back on a daily basis and will occasionally wake up with heel pain. She is recently started offloading her heels using a pillow and heel float technique. Patient denies any constitutional symptoms at this time does have a history of pacemaker application. Patient denies any constitutional symptoms chest pain calf pain shortness shortness of breath or any other complaints. Patient is ambulatory but unable to wear shoes due to pain. Progress of Wound: Courtesy visit for Dr. Quiñonez.? Right heel remains healed, but continues to be very painful to light palpation with sharp, electrical pains with walking.? Left heal no longer has thick callus, it has softened. It is also very painful to palpation. Edema is improved with the Unna boots. She continues to have petechia on her right toes. Objective Data Objective Data Vital Signs: Vital Signs Temp Pulse Resp BP O2 Del Method 97.1 F L 94 16 136/79 H Room Air 07/23/22 09:08 07/23/22 09:08 07/23/22 09:08 07/23/22 09:08 07/23/22 09:08 Oxygen Delivery Method Room Air Weight: 50.349 kg Body Mass Index (BMI) 19.0 Physical Exam Narrative Vascular: Dorsalis pedis posterior tibial pulses palpable 2 out of 4 to bilateral lower extremities they were triphasic on by on Doppler examination. Capillary fill time brisk to toes. There appear to be atrophic skin changes though. +1 pitting edema noted to the forefoot Avni malleoli region and lower leg. There are small petechiae distributed to through the dorsal foot and into the anterior leg. Neurologic: Light touch protective sensation intact to bilateral feet. Dermatologic: Full-thickness ulceration to plantar right heel and plantar left heel. Wounds demonstrate a fibronecrotic base and are tender to palpation. No deep probing undermining or signs of infection at this time. No evidence of fluctuance or crepitus noted to the periwound areas. No debridement performed. Musculoskeletal: No wound forming deformity noted. Muscular strength full. No pain with calf squeeze or palpation of popliteal fossa. Const alert and oriented x3 Debridement Note Debridement Note Post-Debridement Measurements and Additional Note: Post-Debridement Measurements/Treatment - Nurse 1 - General Ulcer Assessment Start: 07/02/22 13:35 Freq: Status: Active Protocol: WC.LOWEXT Activity Type Activity Date Activity User E-sign Co-sign Detail Recorded Client Recorded Date Recorded By Document 07/02/22 13:35 AK [id number] 07/02/22 13:39 AK Document 07/09/22 08:43 ML [id number] 07/09/22 08:52 ML Document 07/16/22 08:35 BMF [id number] 07/16/22 08:44 BMF Document 07/23/22 09:08 MW [id number] 07/23/22 09:21 MW 07/02/22 07/09/22 07/16/22 13:35 08:43 08:35 - Today's Visit Information Type of service Follow-up Visit Follow-up Visit Follow-up Visit (Physician/LENS AND FRAMES PRESCRIPTION CLERK (Physician/LENS AND FRAMES PRESCRIPTION CLERK (Physician/LENS AND FRAMES PRESCRIPTION CLERK ) ) ) Arrival Mode Wheelchair Wheelchair Wheelchair Transfer Assistance Manual None None Transfer Assist (Other) x2 Accompanied by Patient Identification Verified (Name & Yes Yes Yes ) Patient Requires Transmission-Based No No No Precautions Safety Precautions NA Height and Weight Body Mass Index (BMI) 19.0 19.0 19.0 BMI Classification Normal Normal Normal Vital Signs Temperature (97.8 F-99.1 F) 97.6 F L 97.2 F L 96.2 F L Temperature Source Temporal Temporal Temporal Pulse Rate (60-100) 61 66 65 Pulse Location Monitor Monitor Monitor Respiratory Rate (12-18) 18 16 Respiratory rate source Observation Observation Oxygen Delivery Method Room Air Blood Pressure (90/60-120/80) 133/57 H 90/60 127/66 H Blood Pressure Mean (mm Hg) 82 70 86 Source Monitor Monitor Monitor Position Sitting Sitting Blood Pressure Location Left Arm History Since Last Visit- (Skip if this is Patient's initial visit) Have you changed medications since your No No No last visit? Any new allergies or adverse reactions No No No Had a fall/change in ADL's that may No No No increase risk of falls Signs or symptoms of abuse and/or No No No neglect since last visit Have you been in the hospital since your No No No last visit? Has dressing in place as prescribed Yes Yes Yes Has compression in place as prescribed Yes N/A Yes Has offloadiing in place as prescribed Yes Experienced any changes in pain level or No No No management Left Footwear Slipper Slipper Slipper Right Footwear Slipper Slipper Slipper Pain Scale: 0-10 Numeric Is Patient Pain Free? Yes Yes Yes 07/23/22 09:08 - Today's Visit Information Type of service Follow-up Visit (Physician/LENS AND FRAMES PRESCRIPTION CLERK ) Arrival Mode Wheelchair Transfer Assistance Manual Transfer Assist (Other) Accompanied by self Patient Identification Verified (Name & Yes ) Patient Requires Transmission-Based No Precautions Safety Precautions Fall Prevention Height and Weight Body Mass Index (BMI) 19.0 BMI Classification Normal Vital Signs Temperature (97.8 F-99.1 F) 97.1 F L Temperature Source Temporal Pulse Rate (60-100) 94 Pulse Location Monitor Respiratory Rate (12-18) 16 Respiratory rate source Observation Oxygen Delivery Method Room Air Blood Pressure (90/60-120/80) 136/79 H Blood Pressure Mean (mm Hg) 98 Source Monitor Position Sitting Blood Pressure Location Left Arm History Since Last Visit- (Skip if this is Patient's initial visit) Have you changed medications since your No last visit? Any new allergies or adverse reactions No Had a fall/change in ADL's that may No increase risk of falls Signs or symptoms of abuse and/or No neglect since last visit Have you been in the hospital since your No last visit? Has dressing in place as prescribed Yes Has compression in place as prescribed Yes Has offloadiing in place as prescribed N/A Experienced any changes in pain level or No management Left Footwear Slipper Right Footwear Slipper Pain Scale: 0-10 Numeric Is Patient Pain Free? Yes - Nurse 1 - General Ulcer Measurement Start: 07/02/22 13:35 Freq: Status: Active Protocol: Activity Type Activity Date Activity User E-sign Co-sign Detail Recorded Client Recorded Date Recorded By Document 07/02/22 13:35 AK [id number] 07/02/22 13:39 AK Document 07/09/22 08:43 ML [id number] 07/09/22 08:52 ML Document 07/16/22 08:35 BMF [id number] 07/16/22 08:44 BMF Document 07/23/22 09:08 MW [id number] 07/23/22 09:21 MW 07/02/22 07/09/22 07/16/22 13:35 08:43 08:35 Wound Center Nurse 1 #2- L HEEL -Combined with other wound -Current Size (cm) - Length 0.4 0.8 0.5 -Current Size (cm) - Width 0.6 0.7 0.6 -Current Size (cm) - Depth 0.2 0.3 0.2 -Total Square Cm 0.24 0.56 0.30 -Date of Last Picture (Recall this field) -Photo Taken No No -Epithelialization None Present -Tunneling No -Undermining/Tunneling No -Circular Undermining No -Exudate Amt Small Medium Small -Exudate Type Serosanguineous Serous Serous -Wound Margin Distinct, Distinct, Distinct, Outline Outline Outline Attached Attached Attached -Granulation Amt None Present (0 Small (1-33%) None Present (0 %) %) -Granulation Quality -Slough/Fibrin Yes Yes -Necrosis Amt Medium (34-66%) None Present (0 Large (67-100%) %) -Necrotic Tissue Type Adherent Slough Adherent Slough Adherent Slough -Structure Exposed N/A -Texture (Shannon-wound Skin Appearance) Scarring Assessed Assessed, Scarring -Moisture (Shannon-wound Skin Appearance) No Abnormality Maceration Assessed -Color (Shannon-wound Skin Appearance) No Abnormality Assessed Assessed, Erythema -Temperature (Shannon-wound Skin No Abnormality No Abnormality No Abnormality Appearance) (Pt Warm) (Pt Warm) (Pt Warm) -Tenderness on Palpation (Shannon-wound No Yes Yes Skin Appearance) -Ulcer Cleansing Soap and Water Soap and Water Rinsed/ Irrigated with Saline -Foul Odor after Cleansing No No No -Anesthetic Used 5% Lidocaine 5% Lidocaine 5% Lidocaine Gel Gel Gel #1- R HEEL CLUSTER -Combined with other wound No -Current Size (cm) - Length 0.7 0.3 -Current Size (cm) - Width 1 0.6 -Current Size (cm) - Depth 0.1 0.1 -Total Square Cm 0.7 0.18 -Date of Last Picture (Recall this field) -Photo Taken No -Epithelialization None Present -Tunneling No -Undermining/Tunneling No -Circular Undermining No -Exudate Amt Small Small -Exudate Type Serous Serous -Wound Margin Distinct, Outline Attached -Granulation Amt None Present (0 None Present (0 %) %) -Granulation Quality -Slough/Fibrin Yes Yes -Necrosis Amt None Present (0 Large (67-100%) %) -Necrotic Tissue Type Adherent Slough Adherent Slough -Structure Exposed -Texture (Shannon-wound Skin Appearance) Assessed Assessed, Scarring -Moisture (Shannon-wound Skin Appearance) Maceration Assessed -Color (Shannon-wound Skin Appearance) Assessed Assessed, Erythema -Temperature (Shannon-wound Skin No Abnormality No Abnormality Appearance) (Pt Warm) (Pt Warm) -Tenderness on Palpation (Shannon-wound Yes Yes Skin Appearance) -Ulcer Cleansing Soap and Water Rinsed/ Irrigated with Saline -Foul Odor after Cleansing No No -Anesthetic Used 5% Lidocaine 5% Lidocaine Gel Gel Lower Limb Edema Present Yes Right Calf (cm) 28.5 29 28 Right Ankle (cm) 20.5 17.5 22 Left Calf (cm) 29.7 27 28.6 Left Ankle (cm) 19.2 17 24 07/23/22 09:08 Wound Center Nurse 1 #2- L HEEL -Combined with other wound No -Current Size (cm) - Length 0.5 -Current Size (cm) - Width 0.6 -Current Size (cm) - Depth 0.1 -Total Square Cm 0.30 -Date of Last Picture (Recall this 07/23/22 field) -Photo Taken Yes -Epithelialization None Present -Tunneling No -Undermining/Tunneling No -Circular Undermining No -Exudate Amt Small -Exudate Type Serosanguineous -Wound Margin Flat & Intact -Granulation Amt None Present (0 %) -Granulation Quality N/A -Slough/Fibrin Yes -Necrosis Amt Large (67-100%) -Necrotic Tissue Type Adherent Slough -Structure Exposed N/A -Texture (Shannon-wound Skin Appearance) Assessed, Localized Edema -Moisture (Shannon-wound Skin Appearance) Assessed, Maceration -Color (Shannon-wound Skin Appearance) No Abnormality, Assessed -Temperature (Shannon-wound Skin No Abnormality Appearance) (Pt Warm) -Tenderness on Palpation (Shannon-wound Yes Skin Appearance) -Ulcer Cleansing Rinsed/ Irrigated with Saline -Foul Odor after Cleansing No -Anesthetic Used 5% Lidocaine Gel #1- R HEEL CLUSTER -Combined with other wound No -Current Size (cm) - Length 0.7 -Current Size (cm) - Width 1.3 -Current Size (cm) - Depth 0.1 -Total Square Cm 0.91 -Date of Last Picture (Recall this 07/23/22 field) -Photo Taken Yes -Epithelialization None Present -Tunneling No -Undermining/Tunneling No -Circular Undermining No -Exudate Amt Small -Exudate Type Serosanguineous -Wound Margin Flat & Intact -Granulation Amt None Present (0 %) -Granulation Quality N/A -Slough/Fibrin Yes -Necrosis Amt Large (67-100%) -Necrotic Tissue Type Adherent Slough -Structure Exposed N/A -Texture (Shannon-wound Skin Appearance) Assessed, Localized Edema -Moisture (Shannon-wound Skin Appearance) Assessed, Maceration -Color (Shannon-wound Skin Appearance) No Abnormality, Assessed -Temperature (Shannon-wound Skin No Abnormality Appearance) (Pt Warm) -Tenderness on Palpation (Shannon-wound No Skin Appearance) -Ulcer Cleansing Rinsed/ Irrigated with Saline -Foul Odor after Cleansing No -Anesthetic Used 5% Lidocaine Gel Lower Limb Edema Present Yes Right Calf (cm) 30.5 Right Ankle (cm) 21.0 Left Calf (cm) 29.5 Left Ankle (cm) 21.5 WC - Nurse 2 - General Ulcer CM Notes Start: 07/02/22 13:35 Freq: Status: Active Protocol: Activity Type Activity Date Activity User E-sign Co-sign Detail Recorded Client Recorded Date Recorded By Document 07/02/22 13:53 MW [id number] 07/02/22 13:57 MW Document 07/09/22 09:05 [id number] 07/09/22 09:09 Document 07/16/22 09:19 JF [id number] 07/16/22 09:29 JF Document 07/23/22 09:30 [id number] 07/23/22 09:42 JF 07/02/22 07/09/22 07/16/22 13:53 09:05 09:19 Wound Center Nurse 2 #2- L HEEL -Time 13:54 09:05 09:20 -Correct Patient Yes Yes Yes -Correct Side, Site, Position Yes Yes Yes -Correct Procedure Yes Yes Yes -Procedure Performed Yes Yes Yes -Type of Procedure Debridement Debridement Debridement -Clinical Debridement Subcutaneous Subcutaneous Subcutaneous -Tissue Removed Subcutaneous Subcutaneous Subcutaneous -Post Debridement (cm) - Length 0.7 0.6 0.6 -Post Debridement (cm) - Width 0.7 0.6 0.6 -Post Debridement (cm) - Depth 0.2 0.2 0.2 -Total Square (Post) (cm) 0.49 0.36 0.36 -Area of Debridement (cm) - Length 0.7 0.6 0.6 -Area of Debridement (cm) - Width 0.7 0.6 0.6 -Total Square (Area) (cm) 0.49 0.36 0.36 -Tunneling No No No -Undermining/Tunneling No No No -Circular Undermining No No No -Wound/Ulcer Outcome Not Healed Not Healed Not Healed -Ulcer Cleansing Rinsed/ Rinsed/ Rinsed/ Irrigated with Irrigated with Irrigated with Saline Saline Saline -Foul Odor after Cleansing No No No -Bioengineered Tissue No No No -Bleeding Controlled with Pressure Pressure Pressure -Treatment Response Procedure Procedure Procedure Tolerated Well Tolerated Well Tolerated Well -Offloading No No No -Pressure Reduction Other -Other Pressure Reduction offloading heel boots -Debridement - Subq, 1st 20sq cm Yes Yes Yes #1- R HEEL CLUSTER -Time 09:06 09:25 -Correct Patient Yes Yes -Correct Side, Site, Position Yes Yes -Correct Procedure Yes Yes -Procedure Performed Yes Yes -Type of Procedure Debridement Debridement -Clinical Debridement Subcutaneous Subcutaneous -Tissue Removed Subcutaneous Subcutaneous -Post Debridement (cm) - Length 0.3 0.4 -Post Debridement (cm) - Width 0.4 0.6 -Post Debridement (cm) - Depth 0.1 0.1 -Total Square (Post) (cm) 0.12 0.24 -Area of Debridement (cm) - Length 0.3 0.4 -Area of Debridement (cm) - Width 0.4 0.6 -Total Square (Area) (cm) 0.12 0.24 -Tunneling No No -Undermining/Tunneling No No -Circular Undermining No No -Wound/Ulcer Outcome Not Healed Not Healed -Ulcer Cleansing Rinsed/ Rinsed/ Irrigated with Irrigated with Saline Saline -Foul Odor after Cleansing No No -Bioengineered Tissue No No -Bleeding Controlled with Pressure Pressure -Treatment Response Procedure Procedure Tolerated Well Tolerated Well -Offloading No No -Debridement - Subq, 1st 20sq cm No No Pain Scale: 0-10 Numeric Is Patient Pain Free? Yes Yes Yes 07/23/22 09:30 Wound Center Nurse 2 #2- L HEEL -Time -Correct Patient No -Correct Side, Site, Position No -Correct Procedure No -Procedure Performed No -Type of Procedure -Clinical Debridement -Tissue Removed -Post Debridement (cm) - Length -Post Debridement (cm) - Width -Post Debridement (cm) - Depth -Total Square (Post) (cm) -Area of Debridement (cm) - Length -Area of Debridement (cm) - Width -Total Square (Area) (cm) -Tunneling -Undermining/Tunneling -Circular Undermining -Wound/Ulcer Outcome Not Healed -Ulcer Cleansing -Foul Odor after Cleansing -Bioengineered Tissue -Bleeding Controlled with -Treatment Response -Offloading -Pressure Reduction -Other Pressure Reduction -Debridement - Subq, 1st 20sq cm #1- R HEEL CLUSTER -Time -Correct Patient No -Correct Side, Site, Position No -Correct Procedure No -Procedure Performed No -Type of Procedure -Clinical Debridement -Tissue Removed -Post Debridement (cm) - Length -Post Debridement (cm) - Width -Post Debridement (cm) - Depth -Total Square (Post) (cm) -Area of Debridement (cm) - Length -Area of Debridement (cm) - Width -Total Square (Area) (cm) -Tunneling -Undermining/Tunneling -Circular Undermining -Wound/Ulcer Outcome Not Healed -Ulcer Cleansing -Foul Odor after Cleansing -Bioengineered Tissue -Bleeding Controlled with -Treatment Response -Offloading -Debridement - Subq, 1st 20sq cm Pain Scale: 0-10 Numeric Is Patient Pain Free? Yes - Nurse 3 - General Ulcer D/C NN Start: 07/02/22 13:35 Freq: Status: Active Protocol: Activity Type Activity Date Activity User E-sign Co-sign Detail Recorded Client Recorded Date Recorded By Document 07/02/22 14:02 MW [id number] 07/02/22 14:04 MW Document 07/09/22 09:26 BM [id number] 07/09/22 09:27 BMF Document 07/16/22 09:34 BM [id number] 07/16/22 09:35 BMF Document 07/23/22 09:40 MW [id number] 07/23/22 09:41 MW 07/02/22 07/09/22 07/16/22 14:02 09:26 09:34 Wound Care Nurse 3 #2- L HEEL -Ulcer Cleansing Not Cleansed Rinsed/ Rinsed/ Irrigated with Irrigated with Saline Saline -Foul Odor after Cleansing No No -Negative Pressure Wound Therapy -Primary Dressing Applied Promogran C Hydrogel ($) [place] Matter -Other Dressing UNNA BOOT -Primary Dressing Covered/Secured with Dry Gauze & Dry Gauze & Roll Gauze, Roll Gauze, Secured with Secured with Tape Tape -Other Covering heel hat heel pads -Promogran [place] Matter 1 #1- R HEEL CLUSTER -Ulcer Cleansing Rinsed/ Rinsed/ Irrigated with Irrigated with Saline Saline -Foul Odor after Cleansing No No -Negative Pressure Wound Therapy -Primary Dressing Applied Promogran [place] Matter -Other Dressing hydrogel -Primary Dressing Covered/Secured with Dry Gauze & Dry Gauze & Roll Gauze, Roll Gauze, Secured with Secured with Tape Tape -Other Covering heel hat heel hat -Promogran [place] Matter 0 BILATERAL LE -Lotion applied to leg before No compression wrap -Multi-Layered Wrap Application Unna Boot - Bilateral ($) -Unna Boots (Bilat) ($) 2 -Tubular Bandage Single Layer Single Layer -Size of Tubigrip Used Size D Size E -Size D ($) 2 -Size E ($) 2 -Other UNNA BOOT APPLIED PER CHRISTOS DOWNEY LPN Treatment Response Procedure Procedure Procedure Tolerated Well Tolerated Well Tolerated Well Pain Scale: 0-10 Numeric Is Patient Pain Free? Yes Yes Yes Teaching: Wound Center Dressing Your Wound -Person Taught -Teaching Method -Response to teaching Compression Wraps & Stockings -Person Taught Patient -Teaching Method Discussion, Demonstration -Response to teaching Verbalize understanding WC - Visit Discharge Discharge Condition Stable Stable Stable Ambulatory Status Wheelchair Wheelchair Wheelchair Transportation Private Auto assisted living assisted living transport transport Accompanied by ASIA SAVAGE Medication Reconcilliation completed & No provided to patient/care provider Clinical Summary of Care Provided Yes Notes: Other assisted living al 07/23/22 09:40 Wound Care Nurse 3 #2- L HEEL -Ulcer Cleansing Rinsed/ Irrigated with Saline -Foul Odor after Cleansing No -Negative Pressure Wound Therapy N/A -Primary Dressing Applied C Hydrogel ($) -Other Dressing -Primary Dressing Covered/Secured with Secured with Tape -Other Covering abd heel hat -Promogran [place] Matter #1- R HEEL CLUSTER -Ulcer Cleansing Rinsed/ Irrigated with Saline -Foul Odor after Cleansing No -Negative Pressure Wound Therapy N/A -Primary Dressing Applied -Other Dressing c.hydrogel -Primary Dressing Covered/Secured with Dry Gauze & Roll Gauze, Secured with Tape -Other Covering abd heel hat -Promogran [place] Matter BILATERAL LE -Lotion applied to leg before compression wrap -Multi-Layered Wrap Application -Unna Boots (Bilat) ($) -Tubular Bandage -Size of Tubigrip Used -Size D ($) -Size E ($) -Other Treatment Response Procedure Tolerated Well Pain Scale: 0-10 Numeric Is Patient Pain Free? Yes Teaching: Wound Center Dressing Your Wound -Person Taught Patient -Teaching Method Discussion, Demonstration -Response to teaching Verbalize understanding Compression Wraps & Stockings -Person Taught -Teaching Method -Response to teaching WC - Visit Discharge Discharge Condition Stable Ambulatory Status Wheelchair Transportation Private Auto Accompanied by self Medication Reconcilliation completed & No provided to patient/care provider Clinical Summary of Care Provided Yes Notes: Dressing applied per Opal Bravo RN Other Assessment/Plan Assessment/Plan (1) Non-pressure chronic ulcer of other part of right foot with fat layer exposed: CODE(S): L97.512 - Non-pressure chronic ulcer of other part of right foot with fat layer exposed PLAN: Patient examined evaluated, all findings bita with patient in detail. Patient had hit right heel wound healed temporarily. This has recurred. Patient offloading her heels and night via heel float with a pillow. She notes that sometimes her foot slips off and she will wake up with pain to her heel. Patient sleeps in the supine position. I discussed with patient in detail that this is the likely etiology of her wound as a pressure injury to bilateral heels. We are awaiting arterial studies for further evaluation of her micro and macrovascular network. Patient received 1 Prevalon offloading boot. She is awaiting an additional. I educated her to start this on the foot that hurts her the worst. She will initiate use of the second Prevalon boot once it is received. Previous lab work demonstrated elevated blood glucose at approximately greater than 190. Elevated ESR. All of their findings were normal and negative for any autoimmune etiology. Clinically I have little concern for any infection at this time. Wound was dressed with hydrogel DSD and Tubigrip for compression. Patient will follow up in 1 week. Patient notes that she has not been using PRAFO boots due to difficulty with getting up in the middle of the night. Patient notes that she attempts to offload heels with a pillow but notes some burning in her heels that wakes her up. I discussed that this is likely additional tissue ischemia from pressure on the site and that she needs to use her PRAFO boots I discussed that she can use her PRAFO boots without them prescription and that way she can have the offloading while she sleeps and is able to get in and out of the boots without difficulty if she needs to go to the bathroom in the middle the night. (2) Non-pressure chronic ulcer of other part of left foot with fat layer exposed: CODE(S): L97.522 - Non-pressure chronic ulcer of other part of left foot with fat layer exposed
== END 2022-07-26 23:59 | disposition home or self-care (01) ==
LOC: WC 08:45
PROVIDERS: PCP Internal Medicine; Referring Provider Internal Medicine; Visit Provider Podiatrist
DX: L97.422 Non-pressure chronic ulcer of left heel and midfoot with fat layer exposed (principal); R60.0 Localized edema; M79.671 Pain in right foot; R23.3 Spontaneous ecchymoses
CPT/HCPCS: 11042; 29580; 99213; G0463

== ENCOUNTER 2022-08-27 09:30 | Outpatient (RCR) | payer MEDICARE, SELFPAY ==
[2022-07-27 00:38] VITALS: BP 136/79; PULSE 94; RESP 16; TEMP 36.2; BMI 19.0
[2022-08-13 09:24] VITALS: BP 116/45; PULSE 49; TEMP 35.5; BMI 19.0
--- NOTE | 2022-08-13 09:34 | PN.PCM_ITS ---
History of Present Illness Date of Service: 08/13/22 Chief Complaint: Bilateral heel ulcers History of Wound: This 86-year-old female presents to clinic with bilateral heel ulcerations. Patient notes that she has had these wounds for approximately 1 year. Patient notes that she had a hospitalization at the onset of the wounds. Patient uncertain of why she was hospitalized and when exactly the wound started. But patient does note that she sleeps on her back on a daily basis and will occasionally wake up with heel pain. She is recently started offloading her heels using a pillow and heel float technique. Patient denies any constitutional symptoms at this time does have a history of pacemaker application. Patient denies any constitutional symptoms chest pain calf pain shortness shortness of breath or any other complaints. Patient is ambulatory but unable to wear shoes due to pain. Subjective Subjective This 87-year-old female seen for follow-up on bilateral heel ulcerations. Patient resides in a half-way facility. Patient demonstrates minimal ambulatory status. Patient denies constitutional symptoms at this time. Patient has no new complaints. Patient notes that she has been offloading the wounds at work rest when sleeping using PRAFO boots. No other complaints at this time. Objective Data Objective Data Vital Signs: Vital Signs Temp Pulse Resp BP 95.9 F L 49 L 16 116/45 L 08/13/22 09:24 08/13/22 09:24 07/27/22 00:38 08/13/22 09:24 Weight: 50.349 kg Body Mass Index (BMI) 19.0 Physical Exam Narrative Patient alert oriented person place time. Neurovascular status unchanged from previous visit. Stable full-thickness ulcerations noted to plantar heel bilaterally. New ulceration noted to the plantar medial first MPJ. New partial-thickness ulcerations bilateral posterior calf with increased edema. Posterior leg wounds and first MPJ wound demonstrate clean granular bases. Bilateral heel wounds de monstrate fibrotic bases with clean skin edges. No signs of infection at this time. No pain with calf squeeze palpation popliteal fossa. Increased peripheral edema noted bilaterally. Patient is on Coumadin. Muscular strength full to bilateral lower extremity compartments. Debridement Note Debridement Note Post-Debridement Measurements and Additional Note: Post-Debridement Measurements/Treatment CARLOS - Nurse 1 - General Ulcer Assessment Start: 08/13/22 09:22 Freq: Status: Active Protocol: [facility] Activity Type Activity Date Activity User E-sign Co-sign Detail Recorded Client Recorded Date Recorded By Document 08/13/22 09:24 VA [id number] 08/13/22 09:28 VA 08/13/22 09:24 WC - Today's Visit Information Type of service Follow-up Visit (Physician/LADLE WATCHER ) Arrival Mode Wheelchair Patient Identification Verified (Name & Yes ) Patient Requires Transmission-Based No Precautions Safety Precautions NA Height and Weight Weight Measurement Method Standing Scale Body Mass Index (BMI) 19.0 BMI Classification Normal Vital Signs Temperature (97.8 F-99.1 F) 95.9 F L Temperature Source Temporal Pulse Rate (60-100) 49 L Pulse Location Monitor Blood Pressure (90/60-120/80) 116/45 L Blood Pressure Mean (mm Hg) 68 Source Monitor History Since Last Visit- (Skip if this is Patient's initial visit) Have you changed medications since your No last visit? Any new allergies or adverse reactions No Had a fall/change in ADL's that may No increase risk of falls Signs or symptoms of abuse and/or No neglect since last visit Have you been in the hospital since your No last visit? Has dressing in place as prescribed Yes Has compression in place as prescribed N/A Has offloadiing in place as prescribed N/A Experienced any changes in pain level or No management Left Footwear Slipper Right Footwear Slipper Pain Scale: 0-10 Numeric Is Patient Pain Free? Yes - Nurse 1 - General Ulcer Measurement Start: 08/13/22 09:22 Freq: Status: Active Protocol: Activity Type Activity Date Activity User E-sign Co-sign Detail Recorded Client Recorded Date Recorded By Document 08/13/22 09:24 VA [id number] 08/13/22 09:28 VA 08/13/22 09:24 Wound Center Nurse 1 #3 Left medial foot -Combined with other wound No -Current Size (cm) - Length 1.5 -Current Size (cm) - Width 0.2 -Current Size (cm) - Depth 0.2 -Total Square Cm 0.30 -Date of Last Picture (Recall this 08/13/22 field) -Photo Taken Yes -Epithelialization None Present -Tunneling No -Undermining/Tunneling No -Circular Undermining No -Change in Wound Grade/Stage No -Exudate Amt None Present -Wound Margin Distinct, Outline Attached -Granulation Amt Large (67-100%) -Granulation Quality N/A,[employer] -Slough/Fibrin No -Necrosis Amt None Present (0 %) -Structure Exposed N/A -Texture (Shannon-wound Skin Appearance) No Abnormality, Assessed -Moisture (Shannon-wound Skin Appearance) No Abnormality, Assessed -Color (Shannon-wound Skin Appearance) No Abnormality, Assessed -Temperature (Shannon-wound Skin No Abnormality Appearance) (Pt Warm) -Tenderness on Palpation (Shannon-wound No Skin Appearance) -Ulcer Cleansing Rinsed/ Irrigated with Saline -Foul Odor after Cleansing No -Anesthetic Used 5% Lidocaine Gel #2- L HEEL -Combined with other wound No -Current Size (cm) - Length 0.5 -Current Size (cm) - Width 0.5 -Current Size (cm) - Depth 0.3 -Total Square Cm 0.25 -Photo Taken No -Tunneling No -Undermining/Tunneling No -Circular Undermining No -Change in Wound Grade/Stage No -Exudate Amt Medium -Exudate Type Serosanguineous -Wound Margin Distinct, Outline Attached -Granulation Amt None Present (0 %) -Granulation Quality N/A -Slough/Fibrin Yes -Necrosis Amt Large (67-100%) -Necrotic Tissue Type Adherent Slough -Structure Exposed N/A -Texture (Shannon-wound Skin Appearance) No Abnormality, Assessed -Moisture (Shannon-wound Skin Appearance) No Abnormality, Assessed -Color (Shannon-wound Skin Appearance) No Abnormality, Assessed -Temperature (Shannon-wound Skin No Abnormality Appearance) (Pt Warm) -Tenderness on Palpation (Shannon-wound No Skin Appearance) -Ulcer Cleansing Rinsed/ Irrigated with Saline -Foul Odor after Cleansing No -Anesthetic Used 5% Lidocaine Gel #1- R HEEL CLUSTER -Combined with other wound No -Current Size (cm) - Length 0.9 -Current Size (cm) - Width 1 -Current Size (cm) - Depth 0.3 -Total Square Cm 0.9 -Photo Taken No -Tunneling No -Undermining/Tunneling No -Circular Undermining No -Change in Wound Grade/Stage No -Exudate Amt None Present -Wound Margin Distinct, Outline Attached -Granulation Amt None Present (0 %) -Granulation Quality N/A -Slough/Fibrin Yes -Necrosis Amt Large (67-100%) -Necrotic Tissue Type Adherent Slough -Structure Exposed N/A -Texture (Shannon-wound Skin Appearance) No Abnormality, Assessed -Moisture (Shannon-wound Skin Appearance) No Abnormality, Assessed -Color (Shannon-wound Skin Appearance) No Abnormality, Assessed -Temperature (Shannon-wound Skin No Abnormality Appearance) (Pt Warm) -Tenderness on Palpation (Shannon-wound No Skin Appearance) -Ulcer Cleansing Rinsed/ Irrigated with Saline -Foul Odor after Cleansing No -Anesthetic Used 4% Lidocaine Solution WC - Nurse 2 - General Ulcer CM Notes Start: 08/13/22 09:22 Freq: Status: Active Protocol: Activity Type Activity Date Activity User E-sign Co-sign Detail Recorded Client Recorded Date Recorded By Document 08/13/22 09:22 [id number] 08/13/22 09:33 08/13/22 09:22 Wound Center Nurse 2 3-right 1st methead -Time 09:32 -Correct Patient Yes -Correct Side, Site, Position Yes -Correct Procedure Yes -Procedure Performed Yes -Type of Procedure Debridement -Clinical Debridement Subcutaneous -Tissue Removed Subcutaneous -Post Debridement (cm) - Length 1.0 -Post Debridement (cm) - Width 0.3 -Post Debridement (cm) - Depth 0.2 -Total Square (Post) (cm) 0.30 -Area of Debridement (cm) - Length 1.0 -Area of Debridement (cm) - Width 0.3 -Total Square (Area) (cm) 0.30 -Tunneling No -Undermining/Tunneling No -Circular Undermining No -Wound/Ulcer Outcome Not Healed -Ulcer Cleansing Rinsed/ Irrigated with Saline -Foul Odor after Cleansing No -Bioengineered Tissue No -Bleeding Controlled with Pressure -Treatment Response Procedure Tolerated Well -Debridement - Subq, 1st 20sq cm Yes #2- L HEEL -Time 09:31 -Correct Patient Yes -Correct Side, Site, Position Yes -Correct Procedure Yes -Procedure Performed Yes -Type of Procedure Debridement -Clinical Debridement Subcutaneous -Tissue Removed Subcutaneous -Post Debridement (cm) - Length 0.5 -Post Debridement (cm) - Width 0.5 -Post Debridement (cm) - Depth 0.1 -Total Square (Post) (cm) 0.25 -Area of Debridement (cm) - Length 0.5 -Area of Debridement (cm) - Width 0.5 -Total Square (Area) (cm) 0.25 -Tunneling No -Undermining/Tunneling No -Circular Undermining No -Wound/Ulcer Outcome Not Healed -Ulcer Cleansing Rinsed/ Irrigated with Saline -Foul Odor after Cleansing No -Bioengineered Tissue No -Bleeding Controlled with Pressure -Treatment Response Procedure Tolerated Well -Offloading No -Debridement - Subq, 1st 20sq cm No #1- R HEEL CLUSTER -Time 09:31 -Correct Patient Yes -Correct Side, Site, Position Yes -Correct Procedure Yes -Procedure Performed Yes -Type of Procedure Debridement -Clinical Debridement Subcutaneous -Tissue Removed Subcutaneous -Post Debridement (cm) - Length 1.0 -Post Debridement (cm) - Width 1.5 -Post Debridement (cm) - Depth 0.2 -Total Square (Post) (cm) 1.50 -Area of Debridement (cm) - Length 1.0 -Area of Debridement (cm) - Width 1.5 -Total Square (Area) (cm) 1.50 -Tunneling No -Undermining/Tunneling No -Circular Undermining No -Wound/Ulcer Outcome Not Healed -Ulcer Cleansing Rinsed/ Irrigated with Saline -Foul Odor after Cleansing No -Bioengineered Tissue No -Bleeding Controlled with Pressure -Treatment Response Procedure Tolerated Well -Offloading No -Debridement - Subq, 1st 20sq cm No Pain Scale: 0-10 Numeric Is Patient Pain Free? Yes Assessment/Plan Assessment/Plan (1) Non-pressure chronic ulcer of other part of right foot with fat layer exposed: CODE(S): L97.512 - Non-pressure chronic ulcer of other part of right foot with fat layer exposed PLAN: Patient examined evaluated, all findings bita with patient in detail. Patient's wound is stable at this time. 2 new partial-thickness wounds to the part posterior calf with increased edema. New wound to plantar medial first MPJ on the right side. All wounds are stable and healthy. Wounds to the posterior heel and plantar right first MPJ were debrided x3 excisionally down to including level of subcutaneous tissue of all nonviable tissue using 5 mm dermal curette without incident. Consent was obtained. Hemostasis obtained with light compression. Anesthesia not used due to neuropathy. Patient tolerated procedure well. Bilateral heel ulcerations dressed with Santyl right first MPJ wound dressed with hydrogel posterior leg ulcerations dressed with Adaptic followed by DSD and Tubigrip for compression. We are awaiting arterial studies which are scheduled on 08/22/2022. Reviewed patient's blood sugars and they are routinely greater than 200 250 on a daily basis. This demonstrates poor control and a poor wound healing environme nt. I recommend tighter control per the patient's primary care doctor. Patient will follow up in 2 weeks at which time we will review arterial studies and consider vascular referral. We may consider advanced grafting to right heel with epi fix. We may consider total contact casting however this is limited due to her fluctuations in swelling. (2) Non-pressure chronic ulcer of other part of left foot with fat layer exposed: CODE(S): L97.522 - Non-pressure chronic ulcer of other part of left foot with fat layer exposed
--- NOTE | 2022-08-22 10:05 | VDLE_ITS ---
Reason For Study: LE ULCERS RIGHT LEFT RT GSV compressible, spontaneous and LT GSV compressible, spontaneous and demonstrates pulsatile flow throughout the demonstrates pulsatile flow throughout the vessel. vessel. Edema noted throughout RT Calf. Edema noted throughout LT Calf. CFV is compressible, spontaneous, competent CFV is compressible, spontaneous, competent, and demonstrates pulsatile venous flow. and demonstrates pulsatile venous flow. FV is compressible, spontaneous, competent FV is compressible, spontaneous, competent and demonstrates pulsatile venous flow. and demonstrates pulsatile venous flow. POP V is compressible, spontaneous, competent POP V is compressible, spontaneous, competent and demonstrates pulsatile venous flow. and demonstrates pulsatile venous flow. T/P Trunk is compressible. T/P Trunk is compressible. PTV is compressible. PTV is compressible. RT PerV is compressible. LT PerV is compressible. SFJ is competent and measures 0.54 x 0.49 cm. SFJ is competent and measures 0.51 x 0.55 cm. GSV proximal thigh measures 0.28 x 0.32 cm. GSV proximal thigh measures 0.38 x 0.39 cm. GSV at knee measures 0.30 x 0.33 cm. GSV at knee measures 0.32 x 0.32 cm. GSV is competent throughout. GSV is competent throughout. SSV proximal calf is competent and measures SSV proximal calf is competent and measures 0.45 x 0.43 cm. 0.36 x 0.36 cm. Procedure Exam performed in department. The exam was diagnostic. VL/Venous Duplex US - Tommy Extrem Interpretation Summary Deep veins of the lower extremities are bilaterally patent and compressible seg mentally. There is no evidence of deep vein thrombosis on either side. Valvular competence appears in tact within the proximal deep venous systems bilaterally. The great saphenous veins appear bila terally patent and compressible segmentally. Sapheno-femoral junctions are bilaterally competent . Valvular competence appears to be intact segmentally within the great saphenous veins bilaterally. Small saphenous veins are patent and competent bilaterally. Pulsatile flow is noted in the deep venou s system bilaterally, which may be indicative of elevated central venous pressure (i.e. congestive he art failure, pulmonary hypertension, etc.). Clinical correlation is advised. Ordering Physician: Osman Quiñonez Referring Physician: Diana Khan Performed By: Nestor Jones RVT
--- NOTE | 2022-08-22 10:05 | ART_ITS ---
Reason For Study: PVD Procedure A bilateral lower extremity continuous wave Doppler with analog waveform analysis,segmental pressures,and ankle brachial indexes without exercise. Left Segmental Pressures Left brachial= 116mmHg. Left thigh = 193mmHg. Left calf = 168mmHg. Left posterior tibial artery = >254mmHg. Left dorsalis pedis artery = >254mmHg. Left digit = 78 mmHg. The left posterior tibial artery waveforms are triphasic. The left dorsalis pedis waveforms are triphasic. Right Segmental Pressures Right brachial= 116mmHg. Right thigh = >254mmHg. Right calf = >254mmHg. Right posterior tibial artery = >254mmHg. Right dorsalis pedis artery = >254mmHg. Right digit = 50 mmHg. The right posterior tibial artery waveforms are monophasic. The right dorsalis pedis waveforms are biphasic. Indices The right ankle brachial index by the posterior tibial artery is N/C. The right ankle brachial index by the dorsalis pedis is N/C. The right digital-brachial index is 0.43. The left ankle brachial index by the posterior tibial artery is N/C. The left ankle brachial index by the dorsalis pedis is N/C. The left digital-brachial index is 0.67. VL/Lower Ext Art Exam w/o Exercis Interpretation Summary Monophasic and biphasic Doppler waveforms are noted at ankle level on the right . Triphasic Doppler waveforms are noted at ankle level on the left. Pulse-volume recordings are dim inished at calf, ankle, and digital levels bilaterally. Resting ankle-brachial indices could not be determined on either side due to the noncompressibility of the vasculature. The right digital -brachial index is moderately diminished. The left digital-brachial index is mildly diminished. There is evidence of arterial calcification at ankle level bilaterally. 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 There is evid ence of mild arterial occlusive disease in the left lower extremity. Ordering Physician: Osman Quiñonez Referring Physician: Diana Khan Performed By: Nestor Jones RVT
[2022-08-27 09:42] VITALS: BP 118/69; PULSE 67; TEMP 36.2; BMI 19.0
--- NOTE | 2022-08-27 10:16 | PN.PCM_ITS ---
History of Present Illness Date of Service: 08/27/22 Chief Complaint: Bilateral heel ulcers History of Wound: This 86-year-old female presents to clinic with bilateral heel ulcerations. Patient notes that she has had these wounds for approximately 1 year. Patient notes that she had a hospitalization at the onset of the wounds. Patient uncertain of why she was hospitalized and when exactly the wound started. But patient does note that she sleeps on her back on a daily basis and will occasionally wake up with heel pain. She is recently started offloading her heels using a pillow and heel float technique. Patient denies any constitutional symptoms at this time does have a history of pacemaker application. Patient denies any constitutional symptoms chest pain calf pain shortness shortness of breath or any other complaints. Patient is ambulatory but unable to wear shoes due to pain. Objective Data Objective Data Vital Signs: Vital Signs Temp Pulse Resp BP 97.1 F L 67 16 118/69 08/27/22 09:42 08/27/22 09:42 07/27/22 00:38 08/27/22 09:42 Weight: 50.349 kg Body Mass Index (BMI) 19.0 Physical Exam Narrative Patient alert oriented person place time. Neurovascular status unchanged from previous visit. Stable full-thickness ulcerations noted to plantar heel bilaterally. New ulceration noted to the plantar medial first MPJ. New partial-thickness ulcerations bilateral posterior calf with increased edema. Posterior leg wounds and first MPJ wound demonstrate clean granular bases. Bilateral heel wounds demonstrate fibrotic bases with clean skin edges. No signs of infection at this time. No pain with calf squeeze palpation popliteal fossa. Increased peripheral edema noted bilaterally. Patient is on Coumadin. Muscular strength full to bilateral lower extremity compartments. Debridement Note Debridement Note Post-Debridement Measurements and Additional Note: Post-Debridement Measurements/Treatment - Nurse 1 - General Ulcer Assessment Start: 08/13/22 09:22 Freq: Status: Active Protocol: LOWEXT Activity Type Activity Date Activity User E-sign Co-sign Detail Recorded Client Recorded Date Recorded By Document 08/13/22 09:24 [place] [id number] 08/13/22 09:28 [place] Document 08/27/22 09:42 [facility] [id number] 08/27/22 10:04 BMF 08/13/22 08/27/22 09:24 09:42 WC - Today's Visit Information Type of service Follow-up Visit Follow-up Visit (Physician/CASHIER ASSISTANT (Physician/CASHIER ASSISTANT ) ) Arrival Mode Wheelchair Wheelchair Transfer Assistance Other Transfer Assist (Other) 1 Patient Identification Verified (Name & Yes Yes ) Patient Requires Transmission-Based No No Precautions Safety Precautions NA Height and Weight Weight Measurement Method Standing Scale Body Mass Index (BMI) 19.0 19.0 BMI Classification Normal Normal Vital Signs Temperature (97.8 F-99.1 F) 95.9 F L 97.1 F L Temperature Source Temporal Temporal Pulse Rate (60-100) 49 L 67 Pulse Location Monitor Monitor Blood Pressure (90/60-120/80) 116/45 L 118/69 Blood Pressure Mean (mm Hg) 68 85 Source Monitor Monitor Position Sitting Blood Pressure Location Right Forearm History Since Last Visit- (Skip if this is Patient's initial visit) Have you changed medications since your No No last visit? Any new allergies or adverse reactions No No Had a fall/change in ADL's that may No No increase risk of falls Signs or symptoms of abuse and/or No No neglect since last visit Have you been in the hospital since your No No last visit? Has dressing in place as prescribed Yes Yes Has compression in place as prescribed N/A Yes Has offloadiing in place as prescribed N/A Yes Experienced any changes in pain level or No No management Left Footwear Slipper Slipper Right Footwear Slipper Slipper Pain Scale: 0-10 Numeric Is Patient Pain Free? Yes Yes - Nurse 1 - General Ulcer Measurement Start: 08/13/22 09:22 Freq: Status: Active Protocol: Activity Type Activity Date Activity User E-sign Co-sign Detail Recorded Client Recorded Date Recorded By Document 08/13/22 09:24 [place] [id number] 08/13/22 09:28 [place] Document 08/27/22 09:42 [facility] [id number] 08/27/22 10:04 [facility] 08/13/22 08/27/22 09:24 09:42 Wound Center Nurse 1 #3 Left medial foot -Combined with other wound No -Current Size (cm) - Length 1.5 -Current Size (cm) - Width 0.2 -Current Size (cm) - Depth 0.2 -Total Square Cm 0.30 -Date of Last Picture (Recall this 08/13/22 field) -Photo Taken Yes -Epithelialization None Present -Tunneling No -Undermining/Tunneling No -Circular Undermining No -Change in Wound Grade/Stage No -Exudate Amt None Present -Wound Margin Distinct, Outline Attached -Granulation Amt Large (67-100%) -Granulation Quality N/A,[place] -Slough/Fibrin No -Necrosis Amt None Present (0 %) -Structure Exposed N/A -Texture (Shannon-wound Skin Appearance) No Abnormality, Assessed -Moisture (Shannon-wound Skin Appearance) No Abnormality, Assessed -Color (Shannon-wound Skin Appearance) No Abnormality, Assessed -Temperature (Shannon-wound Skin No Abnormality Appearance) (Pt Warm) -Tenderness on Palpation (Shannon-wound No Skin Appearance) -Ulcer Cleansing Rinsed/ Irrigated with Saline -Foul Odor after Cleansing No -Anesthetic Used 5% Lidocaine Gel #4- L LOWER POST LEG -Combined with other wound No -Current Size (cm) - Length 1.9 -Current Size (cm) - Width 0.9 -Current Size (cm) - Depth 0.1 -Total Square Cm 1.71 -Date of Last Picture (Recall this 08/27/22 field) -Photo Taken Yes -Epithelialization None Present -Tunneling No -Undermining/Tunneling No -Circular Undermining No -Exudate Amt Medium -Exudate Type Serous -Wound Margin Distinct, Outline Attached -Granulation Amt None Present (0 %) -Slough/Fibrin Yes -Necrosis Amt Large (67-100%) -Necrotic Tissue Type Adherent Slough -Texture (Shannon-wound Skin Appearance) Assessed, Scarring -Moisture (Shannon-wound Skin Appearance) Assessed -Color (Shannon-wound Skin Appearance) Assessed, Erythema -Temperature (Shannon-wound Skin No Abnormality Appearance) (Pt Warm) -Tenderness on Palpation (Shannon-wound Yes Skin Appearance) -Ulcer Cleansing Rinsed/ Irrigated with Saline -Foul Odor after Cleansing No -Anesthetic Used 5% Lidocaine Gel 3-right 1st methead -Combined with other wound No -Current Size (cm) - Length 1.3 -Current Size (cm) - Width 0.1 -Current Size (cm) - Depth 0.3 -Total Square Cm 0.13 -Date of Last Picture (Recall this 08/27/22 field) -Photo Taken Yes -Epithelialization None Present -Tunneling No -Undermining/Tunneling No -Circular Undermining No -Exudate Amt Small -Exudate Type Serosanguineous -Wound Margin Distinct, Outline Attached -Granulation Amt Large (67-100%) -Granulation Quality Red -Slough/Fibrin Yes -Necrosis Amt Small (1-33%) -Necrotic Tissue Type Adherent Slough -Texture (Shannon-wound Skin Appearance) Assessed,Callus ,Scarring -Moisture (Shannon-wound Skin Appearance) Assessed -Color (Shannon-wound Skin Appearance) Assessed -Temperature (Shannon-wound Skin No Abnormality Appearance) (Pt Warm) -Tenderness on Palpation (Shannon-wound Yes Skin Appearance) -Ulcer Cleansing Rinsed/ Irrigated with Saline -Foul Odor after Cleansing No -Anesthetic Used 5% Lidocaine Gel #2- L HEEL -Combined with other wound No No -Current Size (cm) - Length 0.5 0.6 -Current Size (cm) - Width 0.5 0.6 -Current Size (cm) - Depth 0.3 0.3 -Total Square Cm 0.25 0.36 -Date of Last Picture (Recall this 08/27/22 field) -Photo Taken No Yes -Epithelialization None Present -Tunneling No No -Undermining/Tunneling No No -Circular Undermining No No -Change in Wound Grade/Stage No -Exudate Amt Medium Medium -Exudate Type Serosanguineous Serous -Wound Margin Distinct, Distinct, Outline Outline Attached Attached -Granulation Amt None Present (0 Small (1-33%) %) -Granulation Quality N/A [place] -Slough/Fibrin Yes Yes -Necrosis Amt Large (67-100%) Large (67-100%) -Necrotic Tissue Type Adherent Slough Adherent Slough -Structure Exposed N/A -Texture (Shannon-wound Skin Appearance) No Abnormality, Assessed Assessed -Moisture (Shannon-wound Skin Appearance) No Abnormality, Assessed, Assessed Maceration -Color (Shannon-wound Skin Appearance) No Abnormality, Assessed, Assessed Erythema,Palor -Temperature (Shannon-wound Skin No Abnormality No Abnormality Appearance) (Pt Warm) (Pt Warm) -Tenderness on Palpation (Shannon-wound No Yes Skin Appearance) -Ulcer Cleansing Rinsed/ Soap and Water Irrigated with Saline -Foul Odor after Cleansing No No -Anesthetic Used 5% Lidocaine 5% Lidocaine Gel Gel #1- R HEEL CLUSTER -Combined with other wound No No -Current Size (cm) - Length 0.9 1 -Current Size (cm) - Width 1 1.5 -Current Size (cm) - Depth 0.3 0.3 -Total Square Cm 0.9 1.5 -Date of Last Picture (Recall this 08/27/22 field) -Photo Taken No Yes -Epithelialization None Present -Tunneling No No -Undermining/Tunneling No No -Circular Undermining No No -Change in Wound Grade/Stage No -Exudate Amt None Present Medium -Exudate Type Serous -Wound Margin Distinct, Distinct, Outline Outline Attached Attached -Granulation Amt None Present (0 Small (1-33%) %) -Granulation Quality N/A [place] -Slough/Fibrin Yes Yes -Necrosis Amt Large (67-100%) Large (67-100%) -Necrotic Tissue Type Adherent Slough Adherent Slough -Structure Exposed N/A -Texture (Shannon-wound Skin Appearance) No Abnormality, Assessed, Assessed Scarring -Moisture (Shannon-wound Skin Appearance) No Abnormality, Assessed, Assessed Maceration -Color (Shannon-wound Skin Appearance) No Abnormality, Assessed, Assessed Erythema,Palor -Temperature (Shannon-wound Skin No Abnormality No Abnormality Appearance) (Pt Warm) (Pt Warm) -Tenderness on Palpation (Shannon-wound No No Skin Appearance) -Ulcer Cleansing Rinsed/ Soap and Water Irrigated with Saline -Foul Odor after Cleansing No No -Anesthetic Used 4% Lidocaine 5% Lidocaine Solution Gel Lower Limb Edema Present Yes Right Calf (cm) 37.7 Right Ankle (cm) 19.8 Left Calf (cm) 38.1 Left Ankle (cm) 20.3 WC - Nurse 2 - General Ulcer CM Notes Start: 08/13/22 09:22 Freq: Status: Active Protocol: Activity Type Activity Date Activity User E-sign Co-sign Detail Recorded Client Recorded Date Recorded By Document 08/13/22 09:22 [id number] 08/13/22 09:33 08/13/22 09:22 Wound Center Nurse 2 3-right 1st methead -Time 09:32 -Correct Patient Yes -Correct Side, Site, Position Yes -Correct Procedure Yes -Procedure Performed Yes -Type of Procedure Debridement -Clinical Debridement Subcutaneous -Tissue Removed Subcutaneous -Post Debridement (cm) - Length 1.0 -Post Debridement (cm) - Width 0.3 -Post Debridement (cm) - Depth 0.2 -Total Square (Post) (cm) 0.30 -Area of Debridement (cm) - Length 1.0 -Area of Debridement (cm) - Width 0.3 -Total Square (Area) (cm) 0.30 -Tunneling No -Undermining/Tunneling No -Circular Undermining No -Wound/Ulcer Outcome Not Healed -Ulcer Cleansing Rinsed/ Irrigated with Saline -Foul Odor after Cleansing No -Bioengineered Tissue No -Bleeding Controlled with Pressure -Treatment Response Procedure Tolerated Well -Debridement - Subq, 1st 20sq cm Yes #2- L HEEL -Time 09:31 -Correct Patient Yes -Correct Side, Site, Position Yes -Correct Procedure Yes -Procedure Performed Yes -Type of Procedure Debridement -Clinical Debridement Subcutaneous -Tissue Removed Subcutaneous -Post Debridement (cm) - Length 0.5 -Post Debridement (cm) - Width 0.5 -Post Debridement (cm) - Depth 0.1 -Total Square (Post) (cm) 0.25 -Area of Debridement (cm) - Length 0.5 -Area of Debridement (cm) - Width 0.5 -Total Square (Area) (cm) 0.25 -Tunneling No -Undermining/Tunneling No -Circular Undermining No -Wound/Ulcer Outcome Not Healed -Ulcer Cleansing Rinsed/ Irrigated with Saline -Foul Odor after Cleansing No -Bioengineered Tissue No -Bleeding Controlled with Pressure -Treatment Response Procedure Tolerated Well -Offloading No -Debridement - Subq, 1st 20sq cm No #1- R HEEL CLUSTER -Time 09:31 -Correct Patient Yes -Correct Side, Site, Position Yes -Correct Procedure Yes -Procedure Performed Yes -Type of Procedure Debridement -Clinical Debridement Subcutaneous -Tissue Removed Subcutaneous -Post Debridement (cm) - Length 1.0 -Post Debridement (cm) - Width 1.5 -Post Debridement (cm) - Depth 0.2 -Total Square (Post) (cm) 1.50 -Area of Debridement (cm) - Length 1.0 -Area of Debridement (cm) - Width 1.5 -Total Square (Area) (cm) 1.50 -Tunneling No -Undermining/Tunneling No -Circular Undermining No -Wound/Ulcer Outcome Not Healed -Ulcer Cleansing Rinsed/ Irrigated with Saline -Foul Odor after Cleansing No -Bioengineered Tissue No -Bleeding Controlled with Pressure -Treatment Response Procedure Tolerated Well -Offloading No -Debridement - Subq, 1st 20sq cm No Pain Scale: 0-10 Numeric Is Patient Pain Free? Yes - Nurse 3 - General Ulcer D/C NN Start: 08/13/22 09:22 Freq: Status: Active Protocol: Activity Type Activity Date Activity User E-sign Co-sign Detail Recorded Client Recorded Date Recorded By Document 08/13/22 09:51 [facility] [id number] 08/13/22 09:53 [facility] 08/13/22 09:51 Wound Care Nurse 3 #3 Left medial foot -Other Dressing hydrogel -Primary Dressing Covered/Secured with Dry Gauze & Roll Gauze, Secured with Tape -Other Covering heel hat 3-right 1st methead -Ulcer Cleansing Rinsed/ Irrigated with Saline -Foul Odor after Cleansing No -Primary Dressing Applied C Hydrogel ($), NonAdherent Contact Layer -Primary Dressing Covered/Secured with Dry Gauze & Roll Gauze, Secured with Tape #2- L HEEL -Ulcer Cleansing Rinsed/ Irrigated with Saline -Foul Odor after Cleansing No -Other Dressing hydrogel -Primary Dressing Covered/Secured with Dry Gauze & Roll Gauze, Secured with Tape -Other Covering heel hat #1- R HEEL CLUSTER -Ulcer Cleansing Rinsed/ Irrigated with Saline -Foul Odor after Cleansing No -Other Dressing hydrogel -Primary Dressing Covered/Secured with Dry Gauze & Roll Gauze, Secured with Tape -Other Covering heel hat ble -Tubular Bandage Double Layer -Size of Tubigrip Used Size D -Size D ($) 2 Treatment Response Procedure Tolerated Well Pain Scale: 0-10 Numeric Is Patient Pain Free? Yes - Visit Discharge Discharge Condition Stable Ambulatory Status Wheelchair Transportation ecf transport Other assisted living Assessment/Plan Assessment/Plan (1) Non-pressure chronic ulcer of other part of right foot with fat layer exposed: CODE(S): L97.512 - Non-pressure chronic ulcer of other part of right foot with fat layer exposed PLAN: Patient examined evaluated, all findings bita with patient in detail. Patient's wound is stable at this time. 2 new partial-thickness wounds to the part posterior calf with increased edema. New wound to plantar medial first MPJ on the right side. All wounds are stable and healthy. No debridement today due to vascular status. Arterial studies were reviewed demonstrate calcified vessels at the level of the ankle with 0.43 TBI on the right and 0.67 TBI on the left. With minimal improvement to heal wounds with weekly debridements, offloading using Prevalon offloading boots, I recommend vascular referral. Bilateral heel ulcerations dressed with Santyl right first MPJ wound dressed with hydrogel posterior leg ulcerations dressed with Adaptic followed by DSD and Tubigrip for compression. Reviewed patient's blood sugars and they are routinely greater than 200 250 on a daily basis. This demonstrates poor control and a poor wound healing environment. I recommend tighter control per the patient's primary care doctor. Patient will follow up in 2 weeks at which time we will review arterial studies and consider vascular referral. We may consider advanced grafting to right heel with epi fix. We may consider total contact casting however this is limited due to her fluctuations in swelling. (2) Non-pressure chronic ulcer of other part of left foot with fat layer exposed: CODE(S): L97.522 - Non-pressure chronic ulcer of other part of left foot with fat layer exposed
== END 2022-08-27 23:59 | disposition home or self-care (01) ==
LOC: WC 09:30
PROVIDERS: PCP Internal Medicine; Referring Provider Podiatrist; Visit Provider Podiatrist
DX: L97.512 Non-pressure chronic ulcer of other part of right foot with fat layer exposed (principal); L97.522 Non-pressure chronic ulcer of other part of left foot with fat layer exposed; I73.9 Peripheral vascular disease, unspecified; M79.673 Pain in unspecified foot; R60.0 Localized edema
CPT/HCPCS: 11042; 93923; 93970; 99214; G0463